=== PATIENT | female | born 1960 | race Caucasian/White ===

== ENCOUNTER 2020-01-07 17:58 | Emergency (ER) | payer OTHER ==
[2020-01-07 18:06] VITALS: BP 145/85; PULSE 78; RESP 18
--- NOTE | 2020-01-07 19:30 | CT ---
EXAMINATION TYPE: CT facial bones wo con DATE OF EXAM: 01/07/2020 COMPARISON: None HISTORY: Left eyelid lesion. Right ear pain. CT DLP: mGycm Automated exposure control for dose reduction was used. Images were obtained from the bottom of the mandible to the top of the frontal sinuses without contra st. There is old right temporal craniotomy defect. There is encephalomalacia right cerebral hemisphere. T he mandibular ring is intact. Temporal mandibular joints are intact. Zygomatic arches appear normal. The maxilla is intact. There is some mucosal thickening left maxillary sinus. There is no evidence of a blowout fracture. The orbital margins are intact. There is no retro-orbital mass. There is soft ti ssue swelling superior to the right orbit. Nasal bone appears intact. There is normal aeration of the temporal bones. The external auditory canals appear normal. There is normal aeration of the epitympanic recess bilaterally. There is no evidence of a soft tissue mass. IMPRESSION: Soft tissue deformity in the right supraorbital region. Previous surgery. Right hemisphere encephalomalacia. No abnormality seen of the temporal bones and ex ternal auditory canals.
--- NOTE | 2020-01-07 19:37 | CT ---
EXAMINATION TYPE: CT brain wo con DATE OF EXAM: 01/07/2020 COMPARISON: None HISTORY: Left eyelid lesion. Right ear pain. CT DLP: 1305.4 mGycm Automated exposure control for dose reduction was used. There is some cerebral cortical atrophy. There is hypodensity in the right temporal lobe in the luna and white matter consistent with old encephalomalacia. There is old right temporal craniotomy defect. There is no midline shift. There is no sign of intracranial hemorrhage. Skull base is intact. There is normal aeration of the mastoid sinuses. IMPRESSION: Old right temporal lobe encephalomalacia. No acute intracranial abnormality.
--- NOTE | 2020-01-07 19:56 | ED ---
General Adult HPI - General Chief complaint: Skin/Abscess/Foreign Body Stated complaint: eye problems Time Seen by Provider: 01/07/20 18:12 Source: patient, RN notes reviewed, old records reviewed Mode of arrival: ambulatory - History of Present Illness Initial comments: 59-year-old female patient presents to ED for evaluation of a lesion around right eye. Patient reports that has been there for about the last 7 weeks ever she feels as if it is getting bigger. States that her eyes have been tearing a little bit more recently but denies any vision changes denies any other acute complaints. Systemic: Pt denies fatigue, fever/chills, rash. Pt denies weakness, night sweats, weight loss. Neuro: Pt denies headache, visual disturbances, syncope or pre-syncope. HEENT: Pt denies ocular discharge or irritation, otalgia, rhinorrhea, pharyngitis or notable lymphadenopathy. Cardiopulmonary: Pt denies chest pain, SOB, heart palpitations, dyspnea on exertion. Abdominal/GI: Pt denies abdominal pain, n/v/d. : Pt denies dysuria, burning w/ urination, frequency/urgency. Denies new onset urinary or bowel incontinence. MSK: Pt denies myalgia, loss of strength or function in extremities. Neuro: Pt denies new onset weakness, paresthesias. - Related Data Allergies Allergy/AdvReac Type Severity Reaction Status Date / Time aspirin Allergy Unknown Verified 01/07/20 18:06 Review of Systems ROS Statement: Those systems with pertinent positive or pertinent negative responses have been documented in the HPI. ROS Other: All systems not noted in ROS Statement are negative. Past Medical History Past Medical History: Dementia, Myocardial Infarction ([place]) Additional Past Medical History / Comment(s): tumors in brain, History of Any Multi-Drug Resistant Organisms: None Reported Additional Past Surgical History / Comment(s): Brain sx Past Psychological History: No Psychological Hx Reported Smoking Status: Current every day smoker Past Alcohol Use History: None Reported Past Drug Use History: Marijuana General Exam - General Exam Comments Initial Comments: Constitutional: NAD, AOX3, Pt has pleasant affect. HEENT: NC/AT, trachea midline, neck supple, no lymphadenopathy. External ears appear normal, without discharge. Mucous membranes moist. Eyes PERRLA, EOM intact. Eye lesion to the right medial canthus. Small nodular growth above the right eyelid as well. No fluctuance or drainage. There is no scleral icterus. No pallor noted. Cardiopulmonary: RRR, no murmurs, rubs or gallops, no JVD noted. Lungs CTAB in anterior and posterior awan. No peripheral edema. Abdominal exam: Abdomen soft and non-distended. Neuro: CN II-XII grossly intact. No nuchal rigidity. No raccon eyes, no nance sign, no hemotympanum. No cervical spinal tenderness. MSK: Full active ROM in upper and lower extremities, 5/5 stregnth. Course Vital Signs 01/07/20 18:02 Temperature 98.1 F Pulse Rate 78 Respiratory 18 Rate Blood Pressure 145/85 O2 Sat by Pulse 98 Oximetry Medical Decision Making - Medical Decision Making 59-year-old female patient presents to ED for evaluation of a lesion around right eye. Patient reports that has been there for about the last 7 weeks ever she feels as if it is getting bigger. States that her eyes have been tearing a little bit more recently but denies any vision changes denies any other acute complaints. Pt VSS, afebrile. Physical exam displayed: I lesion near the right medial canthus with some nodular growth above the right eyelid. Patient did have prior brain tumor removed a number of years ago so there is some possible concern for that. CT facial bones and CT brain without contrast was performed. There is no contiguous growth. This is however concerning for skin cancer and discussed this with patient. She verbalizes understanding as well as her friend who is in room. Patient will be discharged with outpatient primary care dermatology and ophthalmology follow-up. We'll turn worsening symptoms. Case discussed and pt seen with with Dr. Vazquez. Disposition Clinical Impression: Skin lesion Disposition: HOME SELF-CARE Condition: Stable Instructions (If sedation given, give patient instructions): Skin Biopsy (DC) Additional Instructions: Follow up with primary care, dairy equipment repairer and power system dispatcher tomorrow. I do recommend that you have a skin biopsy performed as soon as possible. Return if any worsening symptoms. Is patient prescribed a controlled substance at d/c from ED?: No Referrals: None,Stated [Primary Care Provider] - 1-2 days Vandana Carpenter MD [REFERRING] - 1-2 days Nigel Layne MD [STAFF PHYSICIAN] - 1-2 days Nara Lynne MD [STAFF PHYSICIAN] - 1-2 days
[2020-01-07 20:18] VITALS: TEMP 97.5
== END 2020-01-07 20:18 | disposition home or self-care (01) ==
LOC: EC 17:58
DX: L98.9 Disorder of the skin and subcutaneous tissue, unspecified (principal); I25.2 Old myocardial infarction; F17.200 Nicotine dependence, unspecified, uncomplicated; Z88.6 Allergy status to analgesic agent
CPT/HCPCS: 70450; 70486; 99284

== ENCOUNTER 2020-01-12 20:13 | Emergency (ER) | payer OTHER ==
[2020-01-12] MEDS ORDERED: BACITRACIN OINT 1 EACH PACKET TOPICAL ONE (21:08)
--- NOTE | 2020-01-12 21:08 | ED ---
Skin/Abscess/FB HPI - General Chief complaint: Skin/Abscess/Foreign Body Stated complaint: Rt eye problem Time Seen by Provider: 01/12/20 20:18 Source: patient Mode of arrival: ambulatory Limitations: no limitations - History of Present Illness Initial comments: Patient is a 59-year-old female presenting to emergency Department via EMS with complaints of a lesion on her right eye. Patient states she thinks it's been there for about 2 months. Patient was seen in the ER 5 days ago for same complaint however patient states that she does not remember coming to the ER and does not remember what she was told regarding the lesion. She has not followed up with her doctors for this. Patient denies any fevers, chills, blurry vision. She states she does have some drainage from her right eye. Patient states she has a history of brain cancer and has memory issues, dementia. Patient also mentioned that she is homeless that started today. She denies any stress of breath, chest pain, abdominal pain, vomiting, diarrhea. She has no further complaints at this time. - Related Data Allergies Allergy/AdvReac Type Severity Reaction Status Date / Time aspirin Allergy Unknown Verified 01/07/20 18:06 Review of Systems ROS Statement: Those systems with pertinent positive or pertinent negative responses have been documented in the HPI. ROS Other: All systems not noted in ROS Statement are negative. Past Medical History Past Medical History: Dementia, Myocardial Infarction ([place]) Additional Past Medical History / Comment(s): tumors in brain, History of Any Multi-Drug Resistant Organisms: None Reported Additional Past Surgical History / Comment(s): Brain sx Past Psychological History: No Psychological Hx Reported Smoking Status: Current every day smoker Past Alcohol Use History: None Reported Past Drug Use History: Marijuana General Exam - General Exam Comments Initial Comments: GENERAL: Patient is well-developed and well-nourished. Patient is nontoxic and in no acute distress. HEAD: Atraumatic, normocephalic. EYES: Pupils equal round and reactive to light, extraocular movements intact, sclera anicteric, conjunctiva are normal. Eyelids were unremarkable on the left. There is a rather large lesion, about quarter size, to the right medial canthus that extends to the middle of the upper eye. Mild drainage from the right eye. ENT: TMs normal, nares patent, oropharynx clear without exudates. Moist mucous membranes. NECK: Normal range of motion, supple without lymphadenopathy or JVD. LUNGS: Unlabored respirations. Breath sounds clear to auscultation bilaterally and equal. No wheezes rales or rhonchi. HEART: Regular rate and rhythm without murmurs, rubs or gallops. ABDOMEN: Soft, nontender, normoactive bowel sounds. No guarding, no rebound. No masses appreciated. : Deferred MUSCULOSKELETAL: Normal extremities with adequate strength and normal range of motion, no pitting or edema. No clubbing or cyanosis. NEUROLOGICAL: Patient is alert and oriented x 3. Motor and sensory are also intact. Cranial nerves II through XII grossly intact. Symmetrical smile. Normal speech, normal gait. PSYCH: Normal mood, normal affect. SKIN: Warm, Dry, normal turgor, no rashes or lesions noted. Limitations: no limitations Course Vital Signs 01/12/20 20:20 Temperature 98.5 F Pulse Rate 89 Respiratory 20 Rate Blood Pressure 141/67 O2 Sat by Pulse 100 Oximetry Medical Decision Making - Medical Decision Making Patient is a 59-year-old female here for a lesion to her right eye. Patient was seen 5 days ago for same complaint, did have a CT and discussed with patient that there is concerns for this lesion being cancerous. She was given many referrals to plastic surgery as well as dermatology. Patient does have history of dementia and does not remember coming to the ER. I discussed these same things with the patient that her lesion appears cancerous. I will give her referrals again. She is also requesting snf information and tried to give her. Patient is stable for discharge. Return parameters were discussed with the patient she verbalized understanding. Case discussed with Dr. Lennon. Disposition Clinical Impression: Skin lesion Disposition: HOME SELF-CARE Condition: Stable Instructions (If sedation given, give patient instructions): Eye Pain (ED) Additional Instructions: Please return to the Emergency Department if symptoms worsen or any other concerns. The lesion on your eye has concerns for being cancerous. Please follow-up with PCP, dermatology and plastics surgery. Is patient prescribed a controlled substance at d/c from ED?: No Referrals: None,Stated [Primary Care Provider] - 1-2 days Vandana Carpenter MD [REFERRING] - 1-2 days Nigel Layne MD [STAFF PHYSICIAN] - 1-2 days Nara Lynne MD [STAFF PHYSICIAN] - 1-2 days
[2020-01-12 21:39] VITALS: BP 140/81; PULSE 84; RESP 16; TEMP 98.1
== END 2020-01-12 21:38 | disposition home or self-care (01) ==
LOC: EC 20:13
DX: L98.8 Other specified disorders of the skin and subcutaneous tissue (principal); I25.2 Old myocardial infarction; F17.200 Nicotine dependence, unspecified, uncomplicated; Z88.6 Allergy status to analgesic agent; Z59.0 Homelessness; Z85.841 Personal history of malignant neoplasm of brain
CPT/HCPCS: 99282

== ENCOUNTER 2020-01-12 23:27 | Inpatient (IN) | payer OTHER ==
[2020-01-13] MEDS ORDERED: SODIUM CHLORIDE 0.9% 1,000 ML IV STA (00:14)
[2020-01-13 00:30] LABS: Basophils # (A) 0.1 k/uL (0-0.2); Basophils % (A) 1 %; Eosinophils # (A) 0.1 k/uL (0-0.7); Eosinophils % (A) 1 %; HCT 45.1 % (34.0-46.0); HGB 14.6 gm/dL (11.4-16.0); Lymphocytes # (A) 1.9 k/uL (1.0-4.8); Lymphocytes % (A) 18 %; MCH 30.3 pg (25.0-35.0); MCHC 32.4 g/dL (31.0-37.0); MCV 93.7 fL (80.0-100.0); Mean Platelet Volume 8.7; Monocytes # (A) 0.7 k/uL (0-1.0); Monocytes % (A) 6 %; Neutrophils # (A) 7.6 k/uL (1.3-7.7); Neutrophils % (A) 72 %; Platelet Count 247 k/uL (150-450); RBC 4.81 m/uL (3.80-5.40); RDW 13.4 % (11.5-15.5); WBC 10.5 k/uL (3.8-10.6)
--- NOTE | 2020-01-13 00:34 | ED ---
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 Patient has a history of brain cancer with mass removal which she reports resulted in memory problems. Patient reports a history of NSTEMI in the past, treated in Ct. Patient was seen and evaluated earlier today for an eyelid lesion, is concern fo r a cancerous lesion, patient was referred dermis outpatient. Upon discharge home patient reports she began having stabbing substernal chest pain. She doesn't recall who she was with but states that they brought her back to the hospital for evaluation. Due to patient's cardiac history there is concerned she may be having a cardiac event. However no became into the hospital with her. Patient states that she moved to [place] from [place] with a female friend, she states that the friend is out of town for the weekend. Patient states she didn't know where she was processed air which she is doing so she was given a walk back to [place] where she is originally from. - Related Data Allergies Allergy/AdvReac Type Severity Reaction Status Date / Time aspirin Allergy Unknown Verified 01/12/20 23:46 Review of Systems ROS Statement: Those systems with pertinent positive or pertinent negative responses have been documented in the HPI. ROS Other: All systems not noted in ROS Statement are negative. EKG Findings - EKG Comments: EKG Findings:: EKG was obtained due to complaint of chest pain, EKG was obtained at 12:03 AM, rate is 84 rhythm is sinus, normal axis, normal intervals, WA 118, QRS 100, QTC 477 there are no acute ST elevations or depressions no evidence of ischemia or infarction or arrhythmia. Past Medical History Past Medical History: Dementia, Myocardial Infarction ([place]) Additional Past Medical History / Comment(s): tumors in brain, History of Any Multi-Drug Resistant Organisms: None Reported Additional Past Surgical History / Comment(s): Brain sx Past Psychological History: No Psychological Hx Reported Smoking Status: Current every day smoker Past Alcohol Use History: None Reported Past Drug Use History: Marijuana General Exam - General Exam Comments Initial Comments: Physical Exam GENERAL: Chronically ill appearing, underweight HENT: Surgical changes on right side temporal skull EYES: PERRL, EOMI Right eyelid with chronic wound, concerning for cancerous lesion PULMONARY: mild expiratory wheezing CARDIOVASCULAR: There is a regular rate and rhythm without any murmurs gallops or rubs. ABDOMEN: Soft and nontender with normal bowel sounds. SKIN: Skin is clear with no lesions or rashes and otherwise unremarkable. : Deferred NEUROLOGIC: Patient is alert and oriented to person, place, date and president however poor medical artist, limited recall of earlier visit Moving all extremities spontaneously MUSCULOSKELETAL: Normal extremities with adequate strength and full range of motion. No lower extremity swelling or edema. No calf tenderness. PSYCHIATRIC: Normal psychiatric evaluation. Limitations: no limitations Course Vital Signs 01/12/20 01/13/20 23:41 02:19 Temperature 98 F Pulse Rate 81 73 Respiratory 16 18 Rate Blood Pressure 144/79 143/93 O2 Sat by Pulse 100 98 Oximetry Chest Pain MDM - MDM The patient was seen and evaluated, history is obtained from patient This is a very sweet 59-year-old female who appears chronically ill Patient is brought to the ER after complaining of retrosternal chest pain, on arrival she is pain-free however given her significant cardiac history of for workup will be obtained Upon further discussion with the patient I do not feel she safe for discharge home, she has no established medical care, no establish social connections here in town, not certain where she supposed to be staying she's very poor historian she does seem somewhat confused. Despite the negative cardiac workup. Do feel she warrants further observation by medical insurance claims specialist and evaluation by social work. This plan was discussed with Dr. Rodriguez who agrees. Disposition Clinical Impression: Chest pain, Memory impairment, Skin lesion Disposition: ADMITTED IP TO THIS HOSP Condition: Stable Is patient prescribed a controlled substance at d/c from ED?: No
[2020-01-13 00:39] LABS: INR 1.2 (<1.2); Partial Thromboplastin Time 26.1 sec (22.0-30.0); Prothrombin Time 12.1 sec (9.0-12.0)
--- NOTE | 2020-01-13 00:39 | XR ---
EXAMINATION TYPE: XR chest 2V DATE OF EXAM: 01/13/2020 COMPARISON: NONE HISTORY: Chest pain TECHNIQUE: 2 views FINDINGS: Heart is normal. Lungs are clear of consolidation. There is pulmonary hyperinflation and fl attening of the diaphragm there are no hilar masses. There are chest leads. IMPRESSION: COPD. No acute lung disease. Normal heart.
[2020-01-13 00:41] LABS: ALT 12 U/L (4-34); AST 21 U/L (14-36); African American GFR (CKD) >90 (>60 ml/min/1.73 sqM); Albumin 4.6 g/dL (3.5-5.0); Alkaline Phosphatase 93 U/L (38-126); Anion Gap 6 mmol/L; Blood Urea Nitrogen 10 mg/dL (7-17); Calcium 9.6 mg/dL (8.4-10.2); Carbon Dioxide 32 mmol/L (22-30); Chloride 95 mmol/L (98-107); Glucose 100 mg/dL (74-99); Magnesium 2.2 mg/dL (1.6-2.3); Non-African American GFR(CKD) >90 (>60 ml/min/1.73 sqM); Potassium 3.2 mmol/L (3.5-5.1); Sodium 133 mmol/L (137-145); Total Bilirubin 0.4 mg/dL (0.2-1.3); Total Protein 7.3 g/dL (6.3-8.2)
[2020-01-13] MEDS ORDERED: Potassium Replacement Protocol 1 EACH MISC MISCELLANE PRN (01:27)
[2020-01-13] MEDS ORDERED: POTASSIUM CHLORIDE ER 20 MEQ TAB.ER PO STA (01:27)
[2020-01-13] MEDS ORDERED: NITROGLYCERIN SL TABS 0.4 MG TAB SUBLINGUAL PRN (01:53)
--- NOTE | 2020-01-13 04:02 | P.HPIM ---
History of Present Illness H&P Date: 01/13/20 Patient was seen and evaluated in the emergency room at 3 AM on 01/12 Patient is a 59-year-old female with a PMH of mild cognitive impairment, coronary artery disease with multiple MIs, and a reported history of brain cancer with mass removal with resulting memory impairment as per the patient who presented to the ED with complaints of chest pain. The patient presented to the hospital earlier today with complaints of a bleeding right-sided eyelid lesion. She was discharged home and subsequently came back because she developed substernal sharp chest pain. At time of interview, patient reported that her pain had resolved entirely and she was unable to recall the exact details surrounding her pain. The patient notes over that she had recently moved to [place] from [place] to stay with a friend. She appeared to be confused during the interview and noted that she was planning on going back to see her family and had packed a bag of her clothes with a plan to walk from [facility]. She acknowledges that she didn't think the plan through and she is not sure how she would've reached [place] on foot. She reports that the chest pain had only lasted a few minutes, with no associated symptoms and had resolved spontaneously. She denied any additional complaints at the current time. She denied shortness of breath, nausea, vomiting, palpitations, dizziness, headache, visual disturbances, abdominal pain, or diarrhea. In the emergency room an EKG showed a normal sinus rhythm at [address]/T-wave changes noted as reviewed by me. Chest x-ray was consistent with COPD. Laboratory evaluation was reviewed and was remarkable for a sodium of 133, potassium 3.2, chloride 95, CO2 32, glucose 100, and a troponin less than 0.012. Review of Systems Pertinent positives and negatives as discussed in HPI, a complete review of systems was performed and all other systems are negative. Past Medical History Past Medical History: Dementia, Myocardial Infarction ([place]) Additional Past Medical History / Comment(s): tumors in brain, Last Myocardial Infarction Date:: unknown History of Any Multi-Drug Resistant Organisms: None Reported Additional Past Surgical History / Comment(s): Brain sx Past Psychological History: No Psychological Hx Reported Smoking Status: Current every day smoker Past Alcohol Use History: None Reported Past Drug Use History: Marijuana Medications and Allergies Allergies Allergy/AdvReac Type Severity Reaction Status Date / Time aspirin Allergy Unknown Verified 01/12/20 23:46 Physical Exam Vitals: Vital Signs Temp Pulse Pulse Resp BP BP Pulse Ox 01/13/20 02:50 97.9 F 65 18 146/73 100 01/13/20 02:19 73 18 143/93 98 01/12/20 23:41 98 F 81 16 144/79 100 Intake and Output 01/12/20 01/12/20 01/13/20 14:59 22:59 06:59 Other: Weight 40.823 kg General: Frail female, non toxic, no distress, appears older than stated age Derm: Right eyelid irregular lesion, no unusual ecchymoses, warm, dry Head: atraumatic, normocephalic, symmetric Eyes: EOMI, no lid lag, anicteric sclera, pupils equal round reactive to light ENT: Nose and ears atraumatic, no thrush, no pharyngeal erythema Neck: No thyromegaly, no cervical lymphadenopathy, trachea midline, supple Mouth: no lip lesion, mucus membranes moist Cardiovascular: S1S2 reg, no murmur, positive posterior tibial pulse bilateral, no edema, capillary refill less than 2 seconds Lungs: CTA bilateral, no rhonchi, no rales , no accessory muscle use Abdominal: soft, nontender to palpation, no guarding, no appreciable organomegaly, normal bowel sounds Ext: no gross muscle atrophy, muscle strength 5 out of 5 in all 4 extremities grossly, no contractures, Neuro: CN II-XI grossly intact, light touch intact all 4 extremities, finger to nose within normal limits, Psych: Oriented to person, place, and time Results CBC & Chem 7: 01/13/20 00:18 01/13/20 00:18 Labs: Abnormal Lab Results - Last 24 Hours (Table) 01/13/20 01/13/20 Range/Units 00:18 00:18 PT 12.1 H (9.0-12.0) sec INR 1.2 H (<1.2) Sodium 133 L (137-145) mmol/L Potassium 3.2 L (3.5-5.1) mmol/L Chloride 95 L (98-107) mmol/L Carbon Dioxide 32 H (22-30) mmol/L Glucose 100 H (74-99) mg/dL Assessment and Plan Plan: Chest pain, rule out ACS -Cardiology consult -Cardiac monitoring -Trend troponin Right eyelid lesion, appears chronic in nature -Patient is unable to state how long she has had this -Advised the patient on the importance of outpatient follow-up dermatology Questionable living situation -Patient notes that she is living with her friend and her boyfriend though wishes to go to [place] -Obtain social work consult Hypokalemia -Replace and monitor Hypochloremic hyponatremia -Likely due to poor oral intake and malnutrition -Continue with IV fluids DVT prophylaxis -Heparin subq The patient is admitted with an anticipated less than than 2 midnight stay for evaluation of chest pain. CODE STATUS: Full code Discussed with: Patient Anticipated discharge date: In a.m. Anticipated discharge place: Home A total of 35 minutes was spent on the care of this complex patient more than 50% of the time was spent in counseling and care coordination.
[2020-01-13 09:00] LABS: HCT 41.6 % (34.0-46.0); HGB 12.9 gm/dL (11.4-16.0); MCH 28.7 pg (25.0-35.0); MCHC 30.9 g/dL (31.0-37.0); MCV 92.8 fL (80.0-100.0); Mean Platelet Volume 9.8; Platelet Count 224 k/uL (150-450); RBC 4.48 m/uL (3.80-5.40); RDW 13.7 % (11.5-15.5); WBC 8.3 k/uL (3.8-10.6)
[2020-01-13 09:10] LABS: African American GFR (CKD) >90 (>60 ml/min/1.73 sqM); Anion Gap 3 mmol/L; Blood Urea Nitrogen 9 mg/dL (7-17); Calcium 8.9 mg/dL (8.4-10.2); Carbon Dioxide 30 mmol/L (22-30); Chloride 103 mmol/L (98-107); Glucose 75 mg/dL (74-99); Non-African American GFR(CKD) >90 (>60 ml/min/1.73 sqM); Potassium 4.1 mmol/L (3.5-5.1); Sodium 136 mmol/L (137-145)
--- NOTE | 2020-01-13 11:53 | P.PN ---
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 Arrival to the ER she underwent an extensive evaluation. Her initial vital signs were within normal limits. Laboratory analysis showed sodium 133, potassium 3.2, carbon dioxide 32 and initial troponin was negative. EKG demonstrated normal sinus rhythm at a rate of [address]-T wave changes. She was admitted for chest pain observation. She has not started on aspirin secondary to history of an ALLERGY. The remainder of her troponins were negative. Patient also showed significant memory impairment during her hospital stay. Over record review it appears that she came in on 01/06 secondary to a right eye lesion at that point in time she was recommended outpatient follow-up with primary care, dermatology, and ophthalmology. On 01/11 she again presented to the ER with complaints of the right eye lesion and per ER records did not remember coming to the ER on 01/06 for the same problem. She then came back to the ER several hours later with complaints of chest pain. Patient seen and examined at bedside. She states she is having chest pain retrosternal without radiation lasting for 5 minutes the been occurring intermittently. She states she is unsure if it was associated with shortness of breath. She is unsure what started. She is unsure when her eye lesion started, she states she has a history of a br ain tumor which was treated and she now has memory problems. She is unable to remember how she arrived at the emergency department and states I think that the ambulance brought me. She is unable to tell me the address of where she is living at. Apparently her friend Marshall is helping take care of her or living in an RV on someone else's property. She does not know Marshall's phone number. She states they were living in [place] and then came to [place]. She is unsure how long they've been in [place]. She does know that it is 2019 and January. She is unsure of the city. She is able to recall that her ex-'s name is Kavin and do-qangml-ww-law Marilou and there phone numbers. She states she does not take any medication but thinks she should be on something for her prior heart attacks. She is unable to tell me how she obtains money. She states that her original plan was to walk to [place] but she now realizes that that is not a good plan. I told her that she is not safe to leave the hospital without us knowing that there is someone to take care of her she clearly is having memory problems. She is not seem to grasp the concept of why he cannot allow her to leave the [facility] at this time. Social work has been contacted. General: non toxic, no distress, appears at stated age, discheveled and malodorous Derm: warm, dry Head: atraumatic, normocephalic, symmetric Eyes: EOMI, no lid lag, anicteric sclera, right supraorbital nodular growth without drainage Mouth: no lip lesion, mucus membranes moist Cardiovascular: S1S2 reg, no murmur, positive posterior tibial pulse bilateral, Lungs: CTA bilateral, no rhonchi, no rales , no accessory muscle use Abdominal: soft, nontender to palpation, no guarding, no appreciable organomegaly Ext: no gross muscle atrophy, no edema, no contractures Neuro: CN II-XI grossly intact, no focal neuro deficits Psych: Alert, oriented, appropriate affect Chest pain - ACS ruled out - allergic to Aspirin - Await cardio recs - await lipid profile Memory impairment -Patient is currently not competent to make her own decisions. She has demonstrated lack of insight and she felt she could walk from [place] from [place], she is unable to recall where she is living or provide any information, and she cannot remember how she got to the hospital. At this point in time she is not safe for discharge. - CT head from 01/06 demonstrated old rihgt temporal encephalomalacia - Social work consulted, no safe discharge at this time. Right supreorbital lesion - CT face done 01/06 demonstarted soft tissue density of right supraorbital lesion. - outpatient optho/derm follow-up DVT prophylaxis: SCDs Discussed with: Patient, nursing (will enourage patient to call her ex and see if they have information about Marshall) Anticipated discharge: no safe discharge available at this time Anticipated discharge place: unknown A total of 45minutes was spent on the care of this complex patient more than 50% of the time was spent in counseling and care coordination. Objective - Vital Signs Vital signs: Vital Signs Temp 97.6 F 01/13/20 07:55 Pulse 66 01/13/20 08:45 Resp 14 01/13/20 08:45 BP 120/53 01/13/20 07:55 Pulse Ox 99 01/13/20 07:55 Intake & Output 01/12/20 01/13/20 01/13/20 18:59 06:59 18:59 Intake Total 0 Balance 0 Weight 40.823 kg Intake: Oral 0 Other: Voiding Method Toilet - Labs CBC & Chem 7: 01/13/20 06:48 01/13/20 06:48 Labs: Abnormal Lab Results - Last 24 Hours (Table) 01/13/20 01/13/20 01/13/20 Range/Units 00:18 00:18 06:48 MCHC 30.9 L (31.0-37.0) g/dL PT 12.1 H (9.0-12.0) sec INR 1.2 H (<1.2) Sodium 133 L (137-145) mmol/L Potassium 3.2 L (3.5-5.1) mmol/L Chloride 95 L (98-107) mmol/L Carbon Dioxide 32 H (22-30) mmol/L Glucose 100 H (74-99) mg/dL 01/13/20 Range/Units 06:48 MCHC (31.0-37.0) g/dL PT (9.0-12.0) sec INR (<1.2) Sodium 136 L (137-145) mmol/L Potassium (3.5-5.1) mmol/L Chloride (98-107) mmol/L Carbon Dioxide (22-30) mmol/L Glucose (74-99) mg/dL
--- NOTE | 2020-01-13 14:26 | P.CRDCN ---
<Laura Lanier A - Last Filed: 01/13/20 14:10> History of Present Illness Consult date: 01/13/20 Consult reason: chest pain History of present illness: History of present illness: This is a 59-year-old female patient with past medical history of brain cancer with mass remote resulting in memory impairment, mild cognitive impairment. Patient states a friend told her that she has had 3 heart attacks while she was in [place] but she is unable to recall this due to her memory loss. She is not currently taking any medications and does not see a ham doctor. She does not recall if she's ever had a stress test or heart catheterization. Patient recently moved from [place] to [place]. Patient has been homeless and living in a friend's RV. She is trying to get back to [place] and is waiting for her social security check, she does not have transportation. Social work to develop discharge planning. Patient was seen in the emergency center for eyelid laceration and was prepared for discharge but developed a midsternal sharp chest pain. She denied having any nausea or vomiting. She felt a little short of breath. No radiation of the pain no diaphoresis. CBC was unremarkable. INR 1.2. Sodium 133, potassium 3.2, chloride 95, CO2 32. BUN of 10 and creatinine 0.59. Blood sugar 100. Liver function tests are normal. Troponins are negative on 3 draws. Repeat potassium is 4.1. EKG was a sinus rhythm with no acute ST changes. Chest x-ray reveals COPD. No acute lung disease. Normal heart. Patient denies any chest pain at the time of evaluation. Patient is a smoker one pack per days and she was 12 years of age. She does smoke marijuana occasionally. No alcohol abuse. Mother had history of angina. Review Of Systems: Constitutional: No fever, no chills. No weakness, fatigue or lethargy. EENT: No headache. No dizziness. Lesion to the right eyelid Lungs: No shortness of breath, cough, no sputum production. No wheezing. Cardiovascular: No chest pain, no lower extremity edema. No palpitations. No paroxysmal nocturnal dyspnea. No orthopnea. No lightheadedness or dizziness. No syncopal episodes. Abdominal: No abdominal pain. No nausea, vomiting. No diarrhea. No constipation. No bloody or tarry stools. Musculoskeletal: No myalgias. No muscle weakness, no gait dysfunction, no frequent falls. No back pain. No neck pain. Integumentary: No wounds, no lesions. No rash or pruritus. No unusual bruising. Neurologic: No aphasia. No facial droop. No change in mentation. No head injury. No headache. Psychiatric: No depression. Reports anxiety. Endocrine: No abnormal blood sugars. Physical examination: Gen: This is a very cachectic-appearing disheveled 59-year-old female. Patient is ambulating in her room and appears to be in no acute distress. VS: Afebrile, heart rate 66, blood pressure 120/53, pulse ox 99% on room air. HEENT: Head is atraumatic, normocephalic. Pupils equal, round. Sclerae is anicteric. NECK: Supple. No JVD. No lymphadenopathy. No thyromegaly. LUNGS: Clear to auscultation. No wheezes or rhonchi. No intercostal retractions. HEART: Regular rate and rhythm. No murmur. ABDOMEN: Soft. Bowel sounds are present. No masses. No tenderness. EXTREMITIES: No pedal edema. No calf tenderness. Dorsalis pedis +2 bilaterally. NEUROLOGICAL: Patient is awake, alert and oriented to person place and time. Cranial nerves 2 through 12 are grossly intact. Assessment: Chest pain, acute coronary syndrome ruled out Hypokalemia status post replacement Homeless Plan: No need for further cardiac workup We will sign off and follow up on an as-needed basis. Thank you kindly for this consultation. Nurse practitioner note has been reviewed, I agree with documented findings and plan of care. Patient was seen and examined. Past Medical History Past Medical History: Dementia, Myocardial Infarction (MA) Additional Past Medical History / Comment(s): tumors in brain, Last Myocardial Infarction Date:: unknown History of Any Multi-Drug Resistant Organisms: None Reported Additional Past Surgical History / Comment(s): Brain sx Past Psychological History: No Psychological Hx Reported Smoking Status: Current every day smoker Past Alcohol Use History: None Reported Past Drug Use History: Marijuana Medications and Allergies Home Medications Medication Instructions Recorded Confirmed Type diphenhydrAMINE [Benadryl] 25 mg PO HS PRN 01/13/20 01/13/20 History Allergies Allergy/AdvReac Type Severity Reaction Status Date / Time aspirin Allergy Unknown Verified 01/13/20 10:27 Physical Exam Vitals: Vital Signs Temp Pulse Pulse Resp BP BP Pulse Ox 01/13/20 08:45 66 14 01/13/20 07:55 97.6 F 66 14 120/53 99 01/13/20 02:50 97.9 F 65 18 146/73 100 01/13/20 02:19 73 18 143/93 98 01/12/20 23:41 98 F 81 16 144/79 100 Intake and Output 01/12/20 01/13/20 01/13/20 22:59 06:59 14:59 Intake Total 0 200 Balance 0 200 Intake: Oral 0 200 Other: Voiding Method Toilet # Voids 2 Weight 40.823 kg Results 01/13/20 06:48 01/13/20 06:48 Cardiac Enzymes 01/13/20 01/13/20 01/13/20 Range/Units 00:18 00:18 04:18 AST 21 (14-36) U/L Troponin I <0.012 <0.012 (0.000-0.034) ng/mL 01/13/20 Range/Units 06:48 AST (14-36) U/L Troponin I <0.012 (0.000-0.034) ng/mL Coagulation 01/13/20 Range/Units 00:18 PT 12.1 H (9.0-12.0) sec APTT 26.1 (22.0-30.0) sec CBC 01/13/20 01/13/20 Range/Units 00:18 06:48 WBC 10.5 8.3 (3.8-10.6) k/uL RBC 4.81 4.48 (3.80-5.40) m/uL Hgb 14.6 12.9 (11.4-16.0) gm/dL Hct 45.1 41.6 (34.0-46.0) % Plt Count 247 224 (150-450) k/uL Comprehensive Metabolic Panel 01/13/20 01/13/20 Range/Units 00:18 06:48 Sodium 133 L 136 L (137-145) mmol/L Potassium 3.2 L 4.1 (3.5-5.1) mmol/L Chloride 95 L 103 (98-107) mmol/L Carbon Dioxide 32 H 30 (22-30) mmol/L BUN 10 9 (7-17) mg/dL Creatinine 0.59 0.56 (0.52-1.04) mg/dL Glucose 100 H 75 (74-99) mg/dL Calcium 9.6 8.9 (8.4-10.2) mg/dL AST 21 (14-36) U/L ALT 12 (4-34) U/L Alkaline Phosphatase 93 (38-126) U/L Total Protein 7.3 (6.3-8.2) g/dL Albumin 4.6 (3.5-5.0) g/dL Current Medications Generic Name Dose Route Start Last Admin Trade Name Freq PRN Reason Stop Dose Admin Miscellaneous Information 1 each 01/13/20 01:27 Potassium Replacement Protocol 1 Each Misc MISCELLANE DAILY PRN Per Protocol Protocol Nitroglycerin 0.4 mg 01/13/20 01:53 Nitroglycerin Sl Tabs 0.4 Mg Tab SUBLINGUAL Q5M PRN Chest Pain Intake and Output 01/12/20 01/13/20 01/13/20 22:59 06:59 14:59 Intake Total 0 200 Balance 0 200 Intake: Oral 0 200 Other: Voiding Method Toilet # Voids 2 Weight 40.823 kg 01/13/20 06:48 01/13/20 06:48 <Robert Sepulveda - Last Filed: 01/13/20 17:46> Physical Exam Vitals: Vital Signs Temp Pulse Pulse Resp BP BP Pulse Ox 01/13/20 15:00 98.0 F 59 L 16 118/70 99 01/13/20 08:45 66 14 01/13/20 07:55 97.6 F 66 14 120/53 99 01/13/20 02:50 97.9 F 65 18 146/73 100 01/13/20 02:19 73 18 143/93 98 01/12/20 23:41 98 F 81 16 144/79 100 Intake and Output 01/13/20 01/13/20 01/13/20 06:59 14:59 22:59 Intake Total 0 200 Balance 0 200 Intake: Oral 0 200 Other: Voiding Method Toilet Toilet # Voids 2 Weight 40.823 kg Results 01/13/20 06:48 01/13/20 06:48 Cardiac Enzymes 01/13/20 01/13/20 01/13/20 Range/Units 00:18 00:18 04:18 AST 21 (14-36) U/L Troponin I <0.012 <0.012 (0.000-0.034) ng/mL 01/13/20 Range/Units 06:48 AST (14-36) U/L Troponin I <0.012 (0.000-0.034) ng/mL Coagulation 01/13/20 Range/Units 00:18 PT 12.1 H (9.0-12.0) sec APTT 26.1 (22.0-30.0) sec CBC 01/13/20 01/13/20 Range/Units 00:18 06:48 WBC 10.5 8.3 (3.8-10.6) k/uL RBC 4.81 4.48 (3.80-5.40) m/uL Hgb 14.6 12.9 (11.4-16.0) gm/dL Hct 45.1 41.6 (34.0-46.0) % Plt Count 247 224 (150-450) k/uL Comprehensive Metabolic Panel 01/13/20 01/13/20 Range/Units 00:18 06:48 Sodium 133 L 136 L (137-145) mmol/L Potassium 3.2 L 4.1 (3.5-5.1) mmol/L Chloride 95 L 103 (98-107) mmol/L Carbon Dioxide 32 H 30 (22-30) mmol/L BUN 10 9 (7-17) mg/dL Creatinine 0.59 0.56 (0.52-1.04) mg/dL Glucose 100 H 75 (74-99) mg/dL Calcium 9.6 8.9 (8.4-10.2) mg/dL AST 21 (14-36) U/L ALT 12 (4-34) U/L Alkaline Phosphatase 93 (38-126) U/L Total Protein 7.3 (6.3-8.2) g/dL Albumin 4.6 (3.5-5.0) g/dL Current Medications Generic Name Dose Route Start Last Admin Trade Name Freq PRN Reason Stop Dose Admin Miscellaneous Information 1 each 01/13/20 01:27 Potassium Replacement Protocol 1 Each Misc MISCELLANE DAILY PRN Per Protocol Protocol Nitroglycerin 0.4 mg 01/13/20 01:53 Nitroglycerin Sl Tabs 0.4 Mg Tab SUBLINGUAL Q5M PRN Chest Pain Intake and Output 01/13/20 01/13/20 01/13/20 06:59 14:59 22:59 Intake Total 0 200 Balance 0 200 Intake: Oral 0 200 Other: Voiding Method Toilet Toilet # Voids 2 Weight 40.823 kg 01/13/20 06:48 01/13/20 06:48
[2020-01-13 20:44] LABS: Urine Alcohol Negative (Negative); Urine Barbiturate Negative (Negative); Urine Cocaine Negative (Negative); Urine Methadone Negative (Negative); Urine Opiates Negative (Negative); Urine Phencyclidine Negative (Negative)
[2020-01-14 03:06] LABS: Cholesterol 116 mg/dL (<200); HDL Cholesterol 53 mg/dL (40-60); LDL Cholesterol,Calculated 49 mg/dL (0-99); Triglycerides 71 mg/dL (<150)
[2020-01-14] MEDS: NICOTINE 21MG/24HR PATCH TRANSDERM SCH (11:10)
--- NOTE | 2020-01-14 11:19 | P.PN ---
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 Arrival to the ER she underwent an extensive evaluation. Her initial vital signs were within normal limits. Laboratory analysis showed sodium 133, potassium 3.2, carbon dioxide 32 and initial troponin was negative. EKG demonstrated normal sinus rhythm at a rate of [address]-T wave changes. She was admitted for chest pain observation. She has not started on aspirin secondary to history of an ALLERGY. The remainder of her troponins were negative. Acute coronary syndrome was ruled out. She was cleared by cardiology for disharge. Patient also showed significant memory impairment during her hospital stay. Over record review it appears that she came in on 01/06 secondary to a right eye lesion at that point in time she was recommended outpatient follow-up with primary care, dermatology, and ophthalmology. On 01/11 she again presented to the ER with complaints of the right eye lesion and per ER records did not remember coming to the ER on 01/06 for the same problem. She then came back to the ER several hours later with complaints of chest pain. Patient seen and examined at bedside. She denies any recurrent chest pain, no nausea no shortness of breath. Feeling anxious about being discharged. She is not focused on a talisha coming to pick her up. She states that she has been speaking with her daughter and ultimately wants to go back to [place] to live with her daughter. She also is again asking about her eye lesion and I reminded her that she needs to see a consumer services consultant and have the area biopsied. She was caught smoking in the bathroom. General: non toxic, no distress, appears at stated age, smells of smoke Derm: warm, dry Head: atraumatic, normocephalic, symmetric Eyes: EOMI, no lid lag, anicteric sclera, right supraorbital nodular growth without drainage Mouth: no lip lesion, mucus membranes moist Cardiovascular: S1S2 reg, no murmur, positive posterior tibial pulse bilateral, Lungs: Decreased bs bilateral, no rhonchi, no rales , no accessory muscle use Neuro: CN II-XI grossly intact, no focal neuro deficits Psych: Alert, anxious, did not remember discussing eye lesion yesterday. Chest pain - ACS ruled out - allergic to Aspirin - cardio recs appreciated. - Lipid profile normal Memory impairment -Patient is currently not competent to make her own decisions. She has demonstrated lack of insight and she felt she could walk from [place] from [place], she is unable to recall where she is living or provide a phone number for her emergency care tech Marshall, and she cannot remember how she got to the hospital. At this point in time she is not safe for discharge. 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 - APS notified and unable to get ahold of GABY Olivares. Right supreorbital lesion - CT face done 01/06 demonstrated soft tissue density of right supraorbital lesion. No extension - outpatient optho/derm follow-up DVT prophylaxis: SCDs Discussed with: Patient, nursing Anticipated discharge: no safe discharge available at this time Anticipated discharge place: unknown A total of 20 minutes was spent on the care of this complex patient more than 50% of the time was spent in counseling and care coordination. Objective - Vital Signs Vital signs: Vital Signs Temp 97.9 F 01/14/20 08:57 Pulse 69 01/14/20 08:57 Resp 16 01/14/20 09:00 BP 125/61 01/14/20 08:57 Pulse Ox 99 01/14/20 08:57 Intake & Output 01/13/20 01/14/20 01/14/20 18:59 06:59 18:59 Intake Total 200 100 Balance 200 100 Intake: Oral 200 100 Other: Voiding Method Toilet Toilet Toilet # Voids 2 2 - Labs CBC & Chem 7: 01/13/20 06:48 01/13/20 06:48 Labs: Abnormal Lab Results - Last 24 Hours (Table) 01/13/20 Range/Units 11:59 U Cannabinoids Screen Positive H (Negative) ng/mL
[2020-01-14] MEDS: ALPRAZolam 0.5 MG TAB PO PRN (12:12)
[2020-01-14] MEDS: BACITRACIN ZINC 500 UNIT/GM OINT 28.4 GM TUBE TOPICAL PRN (12:26)
--- NOTE | 2020-01-14 13:43 | P.CN ---
Psychiatric Consult - . Consult date: 01/14/20 Consult:: IDENTIFYING DATA: This patient is a 59-year-old female with significant history of brain tumor, status post treatment, prior myocardial infarctions, and difficult memory presented to the emergency room with complaints of chest pain. HISTORY OF PRESENT ILLNESS: The patient presented to the hospital 01/13/2020. Patient has been noted to be significantly confused and has been a poor historian. Psychiatry has been consulted due to the patient expressing that she would "step out in front of a train to end it all." In regards to depression, patient reports no significant symptoms of depression. She is denying any suicidal or homicidal ideation, intention,'s and/or plan. She states that she was "talking smack." She expresses that she just really wanted to go outside to smoke a cigarette. She vehemently denies any suicidal ideation or intention. She states that she would live for her children and that her Protestant juanis is very strong. She is not endorsing any significant history of mental illnesses aside from feeling depressed after her father years ago. She is not endorsing any auditory or visual hallucinations. She is not reporting any significant paranoia or delusions. Of concern, she has been unable to identify any safety discharge plan or contact info for where she would be going after discharge. She reports that she has recently moved to [place] over the last 5 months. She states that she moved with her friend "Marshall Ramos" into a trailer on another friend's property. Patients admits to using tobacco. She reports 1 pack per day use. She is not endorsing any alcohol use. She reports occasional marijuana use. She reports a 1 time use of cocaine when it was laced marijuana. PAST PSYCHIATRIC HISTORY: Patient has a a history of depression. She is unable to recall any psychotropic medication should be on the past. She denies any previous psychiatric consultations. Patient denies any psychiatric outpatient follow-up. Patient denies any history of suicide attempts in the past. PAST MEDICAL HISTORY: Dementia, myocardial infarction, brain tumors. ALLERGIES: as per EMR. CHEMICAL DEPENDENCY HISTORY: as per HPI. FAMILY PSYCHIATRIC/SUBSTANCE USE HISTORY: Denies SOCIAL HISTORY: Patient was born [place], [place]. She reports moving to multiple places throughout the that she was a child. She reports that she has been 3 times . She states she has 2 children. She reports her daughter is living in [place] but is unable to verbalize where or how to contact her. She states that she has no idea where her son is living. MENTAL STATUS EXAM: General Appearance: Patient appears to be stated age is alert, pleasant, and cooperative. Patient appears to have fair hygiene and grooming wearing hospital gown with fair eye contact. Patient has noticeable right supraorbital modular gross without drainage. Behavior: Patient is calmly standing by the bed without any agitated behavior. Speech: Patient's speech is fluent and nonpressured. Patient speaks with a southern accent. Mood/Affect: Patient reports their mood is "depressed", affect is congruent Suicidality/Homicidality: Patient denies having any suicidal or homicidal ideation intent or plan. Perceptions: Patient denies any visual hallucinations and denies any auditory hallucinations Though content/process: There is no evidence of any delusional thought content and thought process is linear and goal-directed. Memory and concentration: She is alert and oriented to person and place but not to time or situation. grossly intact for the purposes of this session. Can spell "WORLD" backwards Judgment and insight: poor IMPRESSIONS: Memory impairment History of major depressive disorder PLAN: -At this time patient DOES NOT meet criteria for inpatient psychiatric ad mission. -Delirium precautions recommended with patient including - avoiding use of narcotics and HEM MARKER sedatives, limit anticholinergic medications when possible, frequent re-orientation, minimize use of restraints, open window shades during the day and close them at night -Would recommend the following medication changes/additions: We will not start any medications at this time. -Cancel 1:1. Patient does not require suicide precautions. -Psychiatry will sign off at this point, please contact with any questions. 01/14/20 13:31
[2020-01-15] MEDS ORDERED: NICOTINE POLACRILEX 2 MG GUM BUCCAL PRN (11:00)
--- NOTE | 2020-01-15 11:06 | P.PN ---
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 Arrival to the ER she underwent an extensive evaluation. Her initial vital signs were within normal limits. Laboratory analysis showed sodium 133, potassium 3.2, carbon dioxide 32 and initial troponin was negative. EKG demonstrated normal sinus rhythm at a rate of [address]-T wave changes. She was admitted for chest pain observation. She has not started on aspirin secondary to history of an ALLERGY. The remainder of her troponins were negative. Acute coronary syndrome was ruled out. She was cleared by cardiology for discharge. Patient also showed significant memory impairment during her hospital stay. Over record review it appears that she came in on 01/06 secondary to a right eye lesion at that point in time she was recommended outpatient follow-up with primary care, dermatology, and ophthalmology. On 01/11 she again presented to the ER with complaints of the right eye lesion and per ER records did not remember coming to the ER on 01/06 for the same problem. She then came back to the ER several hours later with complaints of chest pain. Patient seen and examined at bedside. She cannot remember how she got here, or what she is here for. States that she was anxious after she had an unsettling dr driver this morning. No chest pain, shortness of breath, or nausea. I again reiterated that she will be here until we have a safe place for her to go when she leaves. General: non toxic, no distress, appears at stated age Derm: warm, dry Head: atraumatic, normocephalic, symmetric Eyes: EOMI, no lid lag, anicteric sclera, right supraorbital nodular growth without drainage Mouth: no lip lesion, mucus membranes moist Cardiovascular: S1S2 reg, no murmur, positive posterior tibial pulse bilateral, Lungs: Decreased bs bilateral, no rhonchi, no rales , no accessory muscle use Neuro: CN II-XI grossly intact, no focal neuro deficits Psych: Alert, awake, appropriate affect. Chest pain - ACS ruled out - allergic to Aspirin - cardio recs appreciated. - Lipid profile normal Memory impairment, not competent to make decision for herself. -Patient is currently not competent to make her own decisions. She has demonstrated lack of insight and she felt she could walk from [place] from [place], she is unable to recall where she is living or provide a phone number for her child care specialist Marshall, and she cannot remember how she got to the hospital. At this point in time she is not safe for discharge until family or guardian contacted. 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 - APS notified and unable to get ahold of GABY Olivares, working with daughter. Right supreorbital lesion - CT face done 01/06 demonstrated soft tissue density of right supraorbital lesion. No extension - outpatient optho/derm follow-up Tobacco abuse - cessation - nicotine replacement DVT prophylaxis: SCDs Discussed with: Patient, nursing Anticipated discharge: no safe discharge available at this time Anticipated discharge place: unknown A total of 20 minutes was spent on the care of this complex patient more than 50% of the time was spent in counseling and care coordination. Objective - Vital Signs Vital signs: Vital Signs Temp 97.8 F 01/15/20 03:15 Pulse 57 L 01/15/20 03:15 Resp 18 01/15/20 03:15 BP 128/62 01/15/20 03:15 Pulse Ox 95 01/15/20 03:15 Intake & Output 01/14/20 01/15/20 01/15/20 18:59 06:59 18:59 Intake Total 340 Balance 340 Intake: Oral 340 Other: Voiding Method Toilet Toilet # Voids 1 2 2 - Labs CBC & Chem 7: 01/13/20 06:48 01/13/20 06:48
[2020-01-15] MEDS: NICOTINE 21MG/24HR PATCH TRANSDERM SCH (12:44)
[2020-01-15 14:41] VITALS: BMI 17.6
[2020-01-16] MEDS: ALPRAZolam 0.5 MG TAB PO PRN ×2 (00:41→23:27)
[2020-01-16] MEDS: BACITRACIN ZINC 500 UNIT/GM OINT 28.4 GM TUBE TOPICAL PRN ×2 (01:19→18:49)
[2020-01-16] MEDS: NICOTINE 21MG/24HR PATCH TRANSDERM SCH (08:52)
--- NOTE | 2020-01-16 18:15 | P.PN ---
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 Arrival to the ER she underwent an extensive evaluation. Her initial vital signs were within normal limits. Laboratory analysis showed sodium 133, potassium 3.2, carbon dioxide 32 and initial troponin was negative. EKG demonstrated normal sinus rhythm at a rate of [address]-T wave changes. She was admitted for chest pain observation. She has not started on aspirin secondary to history of an ALLERGY. The remainder of her troponins were negative. Acute coronary syndrome was ruled out. She was cleared by cardiology for discharge. Patient also showed significant memory impairment during her hospital stay. Over record review it appears that she came in on 01/06 secondary to a right eye lesion at that point in time she was recommended outpatient follow-up with primary care, dermatology, and ophthalmology. On 01/11 she again presented to the ER with complaints of the right eye lesion and per ER records did not remember coming to the ER on 01/06 for the same problem. She then came back to the ER several hours later with complaints of chest pain. Patient is not compatent to make her own decision. APS involved as not able to contact POA and family unable to come in from [place] to care for patient. Patient seen and examined at bedside. No chest pain, SOB, nausea, vomiting. States that she wants to go back to [place]. General: non toxic, no distress, appears at stated age Derm: warm, dry Head: atraumatic, normocephalic, symmetric Eyes: EOMI, no lid lag, anicteric sclera, right supraorbital nodular growth without drainage Mouth: no lip lesion, mucus membranes moist Cardiovascular: S1S2 reg, no murmur, positive posterior tibial pulse bilateral, Lungs: Decreased bs bilateral, no rhonchi, no rales , no accessory muscle use Psych: Alert, awake, appropriate affect. Chest pain - ACS ruled out - allergic to Aspirin - cardio recs appreciated. - Lipid profile normal Memory impairment, not competent to make decision for herself. -Patient is currently not competent to make her own decisions. She has demonstrated lack of insight and she felt she could walk from [place] from [place], she is unable to recall where she is living or provide a phone number for her medication care manager Marshall, and she cannot remember how she got to the hospital. At this point in time she is not safe for discharge until family or guardian contacted. 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 - APS notified and unable to get ahold of GABY Olivares, working with daughter who is unable to care for patient. Applying for guardianship. Right supreorbital lesion - CT face done 01/06 demonstrated soft tissue density of right supraorbital lesion. No extension - outpatient optho/derm follow-up Tobacco abuse - cessation - nicotine replacement DVT prophylaxis: SCDs Discussed with: Patient, nursing Anticipated discharge: no safe discharge available at this time Anticipated discharge place: unknown A total of 20 minutes was spent on the care of this complex patient more than 5 0% of the time was spent in counseling and care coordination. Objective - Vital Signs Vital signs: Vital Signs Temp 97.5 F L 01/16/20 15:00 Pulse 86 01/16/20 15:00 Resp 16 01/16/20 15:00 BP 129/81 01/16/20 15:00 Pulse Ox 97 01/16/20 15:00 Intake & Output 01/15/20 01/16/20 01/16/20 18:59 06:59 18:59 Intake Total 720 Balance 720 Weight 40.823 kg Intake: Oral 720 Other: Voiding Method Toilet Toilet Toilet # Voids 2 1 3 - Labs CBC & Chem 7: 01/13/20 06:48 01/13/20 06:48
[2020-01-17] MEDS: NICOTINE 21MG/24HR PATCH TRANSDERM SCH (08:45)
--- NOTE | 2020-01-17 14:27 | P.PN ---
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 Arrival to the ER she underwent an extensive evaluation. Her initial vital signs were within normal limits. Laboratory analysis showed sodium 133, potassium 3.2, carbon dioxide 32 and initial troponin was negative. EKG demonstrated normal sinus rhythm at a rate of [address]-T wave changes. She was admitted for chest pain observation. She has not started on aspirin secondary to history of an ALLERGY. The remainder of her troponins were negative. Acute coronary syndrome was ruled out. She was cleared by cardiology for discharge. Patient also showed significant memory impairment during her hospital stay. Over record review it appears that she came in on 01/06 secondary to a right eye lesion at that point in time she was recommended outpatient follow-up with primary care, dermatology, and ophthalmology. On 01/11 she again presented to the ER with complaints of the right eye lesion and per ER records did not remember coming to the ER on 01/06 for the same problem. She then came back to the ER several hours later with complaints of chest pain. Patient is not competent to make her own decision. APS involved as not able to contact POA and family unable to come in from [place] to care for patient. Currently applying for guardianship. Patient seen and examined at bedside. No chest pain, SOB, nausea, vomiting. States that she wants to go back to [place]. General: non toxic, no distress, appears at stated age Derm: warm, dry Head: atraumatic, normocephalic, symmetric Eyes: EOMI, no lid lag, anicteric sclera, right supraorbital nodular growth without drainage Mouth: no lip lesion, mucus membranes moist Cardiovascular: S1S2 reg, no murmur, positive posterior tibial pulse bilateral, Lungs: Decreased bs bilateral, no rhonchi, no rales , no accessory muscle use Psych: Alert, awake, appropriate affect. Chest pain - ACS ruled out - allergic to Aspirin - cardio recs appreciated. - Lipid profile normal Memory impairment, not competent to make decision for herself. -Patient is currently not competent to make her own decisions. She has demonstrated lack of insight and she felt she could walk from [place] from [place], she is unable to recall where she is living or provide a phone number for her healthcare administrative assistant Marshall, and she cannot remember how she got to the hospital. At this point in time she is not safe for discharge until family or guardian contacted. 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 - APS notified and unable to get ahold of GABY Olivares, working with daughter who is unable to care for patient. Applying for guardianship. Right supraorbital lesion - CT face done 01/06 demonstrated soft tissue density of right supraorbital lesion. No extension - outpatient optho/derm follow-up Tobacco abuse - cessation - nicotine replacement DVT prophylaxis: SCDs Discussed with: Patient, nursing Anticipated discharge: no safe discharge available at this time Anticipated discharge place: 01/22 A total of 20 minutes was spent on the care of this complex patient more than 50% of the time was spent in counseling and care coordination. Objective - Vital Signs Vital signs: Vital Signs Temp 97.6 F 01/17/20 07:32 Pulse 66 01/17/20 07:32 Resp 16 01/17/20 07:32 BP 109/59 01/17/20 07:32 Pulse Ox 97 01/17/20 07:32 Intake & Output 01/16/20 01/17/20 01/17/20 18:59 06:59 18:59 Intake Total 720 780 Balance 720 780 Intake: Oral 720 780 Other: Voiding Method Toilet Toilet # Voids 3 1 - Labs CBC & Chem 7: 01/13/20 06:48 01/13/20 06:48
[2020-01-17] MEDS: ALPRAZolam 0.5 MG TAB PO PRN (23:09)
[2020-01-18] MEDS: NICOTINE 21MG/24HR PATCH TRANSDERM SCH (08:10)
--- NOTE | 2020-01-18 11:41 | P.PN ---
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 Arrival to the ER she underwent an extensive evaluation. Her initial vital signs were within normal limits. Laboratory analysis showed sodium 133, potassium 3.2, carbon dioxide 32 and initial troponin was negative. EKG demonstrated normal sinus rhythm at a rate of [address]-T wave changes. She was admitted for chest pain observation. She has not started on aspirin secondary to history of an ALLERGY. The remainder of her troponins were negative. Acute coronary syndrome was ruled out. She was cleared by cardiology for discharge. Patient also showed significant memory impairment during her hospital stay. Over record review it appears that she came in on 01/06 secondary to a right eye lesion at that point in time she was recommended outpatient follow-up with primary care, dermatology, and ophthalmology. On 01/11 she again presented to the ER with complaints of the right eye lesion and per ER records did not remember coming to the ER on 01/06 for the same problem. She then came back to the ER several hours later with complaints of chest pain. Patient is not competent to make her own decision. APS involved as not able to contact POA and family unable to come in from [place] to care for patient. Currently applying for guardianship. Patient seen and examined at bedside. Doing well. No chest pain. No nausea. Hoping to leave the hospital soon. General: non toxic, no distress, appears at stated age Derm: warm, dry Head: atraumatic, normocephalic, symmetric Eyes: EOMI, no lid lag, anicteric sclera, right supraorbital nodular growth without drainage Mouth: no lip lesion, mucus membranes moist Cardiovascular: S1S2 reg, no murmur, positive posterior tibial pulse bilateral, Lungs: Decreased bs bilateral, no rhonchi, no rales , no accessory muscle use Psych: Alert, awake, appropriate affect. Memory impairment, not competent to make decision for herself. -Patient is currently not competent to make her own decisions. She has demonstrated lack of insight and she felt she could walk from [place] from [place], she is unable to recall where she is living or provide a phone nu mber for her workforce investment act career manager Marshall, and she cannot remember how she got to the hospital. At this point in time she is not safe for discharge until family or guardian contacted. 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 - APS notified and unable to get ahold of GABY Olivares, working with daughter who is unable to care for patient. Applying for guardianship Hearing 01/21. Right supraorbital lesion - CT face done 01/06 demonstrated soft tissue density of right supraorbital lesion. No extension - outpatient optho/derm follow-up Tobacco abuse - cessation - nicotine replacement Chest pain, resolved - ACS ruled out - allergic to Aspirin - cardio recs appreciated. - Lipid profile normal DVT prophylaxis: SCDs Discussed with: Patient, nursing Anticipated discharge: no safe discharge available at this time Anticipated discharge place: 01/22 A total of 20 minutes was spent on the care of this complex patient more than 50% of the time was spent in counseling and care coordination. Objective - Vital Signs Vital signs: Vital Signs Temp 98 F 01/18/20 08:35 Pulse 61 01/18/20 08:37 Resp 16 01/18/20 08:37 BP 98/51 01/18/20 08:35 Pulse Ox 98 01/18/20 08:35 Intake & Output 01/17/20 01/18/20 01/18/20 18:59 06:59 18:59 Intake Total 240 Balance 240 Weight 40.823 kg Intake: Oral 240 Other: Voiding Method Toilet Toilet # Voids 1 1 # Bowel Movements 1 - Labs CBC & Chem 7: 01/13/20 06:48 01/13/20 06:48
[2020-01-18] MEDS: BACITRACIN ZINC 500 UNIT/GM OINT 28.4 GM TUBE TOPICAL PRN (21:27)
[2020-01-19] MEDS: ALPRAZolam 0.5 MG TAB PO PRN (02:04)
[2020-01-19] MEDS: NICOTINE 21MG/24HR PATCH TRANSDERM SCH (09:46)
--- NOTE | 2020-01-19 15:29 | P.PN ---
Subjective Progress Note Date: 01/19/20 Patient was seen and examined. No acute events overnight. Patient denies any chest pain, shortness breath or palpitations. No nausea or vomiting. No fever or chills. Objective - Vital Signs Vital signs: Vital Signs Temp 97.5 F L 01/19/20 09:00 Pulse 63 01/19/20 09:00 Resp 16 01/19/20 09:00 BP 120/76 01/19/20 09:00 Pulse Ox 98 01/19/20 09:00 Intake & Output 01/18/20 01/19/20 01/19/20 18:59 06:59 18:59 Intake Total 540 300 Balance 540 300 Intake: Oral 540 300 Other: Voiding Method Toilet Toilet # Voids 3 1 # Bowel Movements 1 - Exam General: [non toxic], [no distress], [appears at stated age] Derm: [warm], [dry] Head: [atraumatic], [normocephalic], [symmetric] Eyes: [EOMI], [no lid lag], [anicteric sclera], [right supraorbital nodular growth] Mouth: [no lip lesion], [mucus membranes moist] Cardiovascular: [S1S2 reg], [no murmur], [positive DP pulse bilateral], Lungs: [CTA bilateral], [no rhonchi, no rales] , [no accessory muscle use] Abdominal: [soft], [ nontender to palpation], [no guarding], [no appreciable organomegaly] Ext: [no gross muscle atrophy], [no edema], [no contractures] Neuro: [no focal neuro deficits] Psych: [Alert], [oriented], [appropriate affect] - Labs CBC & Chem 7: 01/13/20 06:48 01/13/20 06:48 Assessment and Plan Assessment: Memory impairment, not competent to make decision for herself. -Patient is currently not competent to make her own decisions. She has demonstrated lack of insight and she felt she could walk to [place] from [place], she is unable to recall where she is living or provide a phone number for her direct service professional [employer], and she cannot remember how she got to the hospital. At this point in time she is not safe for discharge until family or guardian contacted. 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 - APS notified and unable to get ahold of GABY Olivares, working with daughter who is unable to care for patient. Applying for guardianship Hearing 01/21. Right supraorbital lesion - CT face done 01/06 demonstrated soft tissue density of right supraorbital les ion. No extension - Outpatient optho/derm follow-up Tobacco abuse - Cessation - Nicotine replacement Chest pain, resolved - ACS ruled out - Allergic to Aspirin - Cardio recs appreciated. - Lipid profile normal DVT prophylaxis: SCDs Discussed with: Patient, nursing Anticipated discharge: no safe discharge available at this time Anticipated discharge place: 01/22 A total of 20 minutes was spent on the care of this complex patient more than 50% of the time was spent in counseling and care coordination.
[2020-01-20] MEDS: BACITRACIN ZINC 500 UNIT/GM OINT 28.4 GM TUBE TOPICAL PRN ×2 (01:43→22:51)
[2020-01-20] MEDS: NICOTINE 21MG/24HR PATCH TRANSDERM SCH (09:28)
--- NOTE | 2020-01-20 18:20 | P.PN ---
Subjective Progress Note Date: 01/20/20 Patient was seen and examined. No acute events overnight. Patient denies any chest pain, shortness breath or palpitations. No nausea or vomiting. No fever or chills. She complains of something in her eye on the left side. Objective - Vital Signs Vital signs: Vital Signs Temp 98.4 F 01/20/20 15:00 Pulse 86 01/20/20 15:00 Resp 18 01/20/20 15:00 BP 125/67 01/20/20 15:00 Pulse Ox 98 01/20/20 09:00 Intake & Output 01/19/20 01/20/20 01/20/20 18:59 06:59 18:59 Intake Total 300 Balance 300 Intake: Oral 300 Other: Voiding Method Toilet Toilet # Voids 2 2 2 # Bowel Movements 1 1 - Exam General: [non toxic], [no distress], [appears at stated age] Derm: [warm], [dry] Head: [atraumatic], [normocephalic], [symmetric] Eyes: [EOMI], [no lid lag], [injected sclera on the left eye], [right supraorbital nodular growth] Mouth: [no lip lesion], [mucus membranes moist] Cardiovascular: [S1S2 reg], [no murmur], [positive DP pulse bilateral], Lungs: [CTA bilateral], [no rhonchi, no rales] , [no accessory muscle use] Abdominal: [soft], [ nontender to palpation], [no guarding], [no appreciable organomegaly] Ext: [no gross muscle atrophy], [no edema], [no contractures] Neuro: [no focal neuro deficits] Psych: [Alert], [oriented], [appropriate affect] - Labs CBC & Chem 7: 01/13/20 06:48 01/13/20 06:48 Assessment and Plan Assessment: Memory impairment, not competent to make decision for herself. -Patient is currently not competent to make her own decisions. She has demonstrated lack of insight and she felt she could walk to [place] from [place], she is unable to recall where she is living or provide a phone number for her facility maintenance technician Marshall, and she cannot remember how she got to the hospital. At this point in time she is not safe for discharge until family or guardian contacted. 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 - APS notified and unable to get ahold of GABY Olivares, working with daughter who is unable to care for patient. Applying for guardianship Hearing 01/21. Right supraorbital lesion - CT face done 01/06 demonstrated soft tissue density of right supraorbital lesion. No extension - Outpatient optho/derm follow-up Tobacco abuse - Cessation - Nicotine replacement Chest pain, resolved - ACS ruled out - Allergic to Aspirin - Cardio recs appreciated. - Lipid profile normal DVT prophylaxis: SCDs Discussed with: Patient, nursing Anticipated discharge: no safe discharge available at this time Anticipated discharge place: 01/22 A total of 20 minutes was spent on the care of this complex patient more than 50% of the time was spent in counseling and care coordination.
[2020-01-20] MEDS: ALPRAZolam 0.5 MG TAB PO PRN (22:51)
[2020-01-21] MEDS: NICOTINE 21MG/24HR PATCH TRANSDERM SCH (10:42)
[2020-01-21] MEDS: ALPRAZolam 0.5 MG TAB PO PRN (23:49)
--- NOTE | 2020-01-22 07:56 | P.PN ---
Subjective Progress Note Date: 01/21/20 Patient was seen and examined. No acute events overnight. Patient denies any chest pain, shortness breath or palpitations. No nausea or vomiting. No fever or chills. Objective - Vital Signs Vital signs: Vital Signs Temp 97.5 F L 01/21/20 15:00 Pulse 78 01/21/20 15:00 Resp 16 01/21/20 15:00 BP 123/74 01/21/20 15:00 Pulse Ox 98 01/21/20 15:00 Intake & Output 01/20/20 01/21/20 01/21/20 18:59 06:59 18:59 Intake Total 477 Balance 477 Intake: Oral 477 Other: Voiding Method Toilet Toilet # Voids 2 1 1 # Bowel Movements 1 1 - Exam General: [non toxic], [no distress], [appears at stated age] Derm: [warm], [dry] Head: [atraumatic], [normocephalic], [symmetric] Eyes: [EOMI], [no lid lag], [injected sclera on the left eye], [right supraorbital nodular growth] Mouth: [no lip lesion], [mucus membranes moist] Cardiovascular: [S1S2 reg], [no murmur], [positive DP pulse bilateral], Lungs: [CTA bilateral], [no rhonchi, no rales] , [no accessory muscle use] Abdominal: [soft], [ nontender to palpation], [no guarding], [no appreciable organomegaly] Ext: [no gross muscle atrophy], [no edema], [no contractures] Neuro: [no focal neuro deficits] Psych: [Alert], [oriented], [appropriate affect] - Labs CBC & Chem 7: 01/13/20 06:48 01/13/20 06:48 Assessment and Plan Assessment: Memory impairment, not competent to make decision for herself. -Patient is currently not competent to make her own decisions. She has dem onstrated lack of insight and she felt she could walk to [place] from [place], she is unable to recall where she is living or provide a phone number for her production intern Marshall, and she cannot remember how she got to the hospital. At this point in time she is not safe for discharge until family or guardian contacted. 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 - APS notified and unable to get ahold of GABY Olivares, working with daughter who is unable to care for patient. Applying for guardianship Hearing 01/21. Right supraorbital lesion - CT face done 01/06 demonstrated soft tissue density of right supraorbital lesion. No extension - Outpatient optho/derm follow-up Tobacco abuse - Cessation - Nicotine replacement Chest pain, resolved - ACS ruled out - Allergic to Aspirin - Cardio recs appreciated. - Lipid profile normal DVT prophylaxis: SCDs Discussed with: Patient, nursing Anticipated discharge: no safe discharge available at this time Anticipated discharge place: 01/22 A total of 20 minutes was spent on the care of this complex patient more than 50% of the time was spent in counseling and care coordination.
[2020-01-22] MEDS: NICOTINE 21MG/24HR PATCH TRANSDERM SCH (08:11)
[2020-01-22] MEDS: BACITRACIN ZINC 500 UNIT/GM OINT 28.4 GM TUBE TOPICAL PRN (20:42)
[2020-01-23] MEDS: NICOTINE 21MG/24HR PATCH TRANSDERM SCH (07:29)
[2020-01-23 11:03] LABS: Basophils # (A) 0.1 k/uL (0-0.2); Basophils % (A) 1 %; Eosinophils # (A) 0.1 k/uL (0-0.7); Eosinophils % (A) 1 %; HCT 40.8 % (34.0-46.0); HGB 13.1 gm/dL (11.4-16.0); Lymphocytes # (A) 1.7 k/uL (1.0-4.8); Lymphocytes % (A) 18 %; MCH 30.1 pg (25.0-35.0); Mean Platelet Volume 8.5; Monocytes # (A) 0.8 k/uL (0-1.0); Monocytes % (A) 8 %; Neutrophils # (A) 6.8 k/uL (1.3-7.7); Neutrophils % (A) 70 %; Platelet Count 278 k/uL (150-450); RBC 4.34 m/uL (3.80-5.40); RDW 13.4 % (11.5-15.5); WBC 9.7 k/uL (3.8-10.6)
--- NOTE | 2020-01-23 17:34 | P.PN ---
Subjective Progress Note Date: 01/23/20 Patient is doing well today. No acute events overnight. Objective - Vital Signs Vital signs: Vital Signs Temp 98 F 01/23/20 11:48 Pulse 77 01/23/20 11:48 Resp 18 01/23/20 11:48 BP 118/70 01/23/20 11:48 Pulse Ox 99 01/23/20 11:48 Intake & Output 01/22/20 01/23/20 01/23/20 18:59 06:59 18:59 Intake Total 400 400 Balance 400 400 Weight 40.823 kg Intake: Oral 400 400 Other: Voiding Method Toilet Toilet Toilet # Voids 2 1 2 - Exam General: The patient is awake and alert, in no distress Eye: there is normal conjunctiva bilaterally. Neck: The neck is supple, there is no JVD. Cardiovascular: Normal S1-S2, no S3-S4, no murmurs. Respiratory: Lungs clear to auscultation bilaterally Gastrointestinal: Abdomen is soft, nontender Musculoskeletal: There is no pedal edema. Neurological:. Speech is normal. Skin: Skin is warm and dry - Labs CBC & Chem 7: 01/23/20 10:31 01/13/20 06:48 Assessment and Plan Assessment: Memory impairment, not competent to make decision for herself. -Patient is currently not competent to make her own decisions. At this point in time she is not safe for discharge until family or guardian contacted. 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 - APS notified and unable to get ahold of GABY Olivares, working with daughter who is unable to care for patient. Applying for guardianship Hearing 01/21. Right supraorbital lesion - CT face done 01/06 demonstrated soft tissue density of right supraorbital lesion. No extension - Outpatient optho/derm follow-up Tobacco abuse - Cessation - Nicotine replacement Chest pain, resolved - ACS ruled out - Allergic to Aspirin - Cardio recs appreciated. - Lipid profile normal DVT prophylaxis: SCDs Discussed with: Patient, nursing Anticipated discharge: no safe discharge available at this time Anticipated discharge place: 01/23 A total of 20 minutes was spent on the care of this complex patient more than 50% of the time was spent in counseling and care coordination.
[2020-01-23 20:44] LABS: Anion Gap 7.5 mmol/L (4.00-12.00); BUN/Creat Ratio 33.33 Ratio (12.00-20.00); Calcium 10.2 mg/dL (8.7-10.3); Carbon Dioxide 32.5 mmol/L (21.6-31.8); Non-African American GFR(CKD) 98.4 (60.0-200.0); Potassium 4.7 mmol/L (3.5-5.5)
[2020-01-23] MEDS: BACITRACIN ZINC 500 UNIT/GM OINT 28.4 GM TUBE TOPICAL PRN (21:05)
[2020-01-24] MEDS: ALPRAZolam 0.5 MG TAB PO PRN ×2 (08:12→23:32)
[2020-01-24] MEDS: NICOTINE 21MG/24HR PATCH TRANSDERM SCH (08:12)
--- NOTE | 2020-01-24 17:03 | P.PN ---
Subjective Progress Note Date: 01/24/20 Patient is doing well today. No acute events overnight. Objective - Vital Signs Vital signs: Vital Signs Temp 97.9 F 01/24/20 11:09 Pulse 64 01/24/20 15:45 Resp 16 01/24/20 15:45 BP 114/69 01/24/20 11:09 Pulse Ox 98 01/24/20 11:09 Intake & Output 01/23/20 01/24/20 01/24/20 18:59 06:59 18:59 Intake Total 200 Output Total 250 Balance -50 Weight 40.823 kg Intake: Oral 200 Output: Urine 250 Other: Voiding Method Toilet Toilet Toilet # Voids 2 1 1 - Exam General: The patient is awake and alert, in no distress Eye: there is normal conjunctiva bilaterally. Neck: The neck is supple, there is no JVD. Cardiovascular: Normal S1-S2, no S3-S4, no murmurs. Respiratory: Lungs clear to auscultation bilaterally Gastrointestinal: Abdomen is soft, nontender Musculoskeletal: There is no pedal edema. Neurological:. Speech is normal. Skin: Skin is warm and dry - Labs CBC & Chem 7: 01/23/20 10:31 01/23/20 10:31 Labs: Abnormal Lab Results - Last 24 Hours (Table) 01/23/20 Range/Units 10:31 Carbon Dioxide 32.5 H (21.6-31.8) mmol/L BUN/Creatinine Ratio 33.33 H (12.00-20.00) Ratio Assessment and Plan Assessment: Memory impairment, not competent to make decision for herself. -Patient is currently not competent to make her own decisions. At this point in time she is not safe for discharge until family or guardian contacted. 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 - APS notified and unable to get ahold of GABY Olivares, working with daughter who is unable to care for patient. Applying for guardianship Hearing 01/21. Right supraorbital lesion - CT face done 01/06 demonstrated soft tissue density of right supraorbital lesion. No extension - Outpatient optho/derm follow-up Tobacco abuse - Cessation - Nicotine replacement Chest pain, resolved - ACS ruled out - Allergic to Aspirin - Cardio recs appreciated. - Lipid profile normal DVT prophylaxis: SCDs Anticipated discharge: no safe discharge available at this time Anticipated discharge place: Awaiting echocardiogram
[2020-01-24 23:27] LABS: Glucose,Whole Blood 106 mg/dL (75-99)
[2020-01-25] MEDS: NICOTINE 21MG/24HR PATCH TRANSDERM SCH (09:02)
--- NOTE | 2020-01-25 13:04 | XR ---
EXAMINATION TYPE: XR chest 1V DATE OF EXAM: 01/25/2020 COMPARISON: 01/13/2020 HISTORY: 59 year-old female rule out TB, cough TECHNIQUE: Single frontal view of the chest is obtained. FINDINGS: Heart normal size. Mild atherosclerotic arch calcifications. Hyperinflation with flattening of the he midiaphragms. No consolidation or pleural effusion. IMPRESSION: COPD. No acute process seen.
--- NOTE | 2020-01-25 13:20 | CDI ---
Documentation Clarification Form Date: 01/25/2020 01:04:14 PM From: Jennifer Huff Admit Date: 01/16/2020 08:43:00 AM Patient Name: Lou Reyes Visit Number: [id number] Discharge Date: ATTENTION: The Clinical Documentation Specialists (CDI) and [facility] Coding Staff appreciate your assistance in clarifying documentation. Please respond to the clarification below the line at the bottom and electronically sign. The CDI & [facility] Coding staff will review the response and follow-up if needed. Please note: Queries are made part of the Legal Health Record. If you have any questions, please contact the author of this message via ITS. Dr. Odalys Catalan Malnutrition has been documented in the H&P 01/12. History/Risk Factors: 59-year-old female presents to the ED returning to the with substernal chest pain after presenting earlier in the day for eyelid lesion. Medical History Dementia, [place] and current everyday smoker Clinical Indicators: 01/12 Labs: Na 133, K 3.2, Chl 95, Glucose 100, Current BMI:17.6 Insufficient energy intake: Initial assessment eating 50-75% of meals Per H&P 01/12 No gross muscle atrophy, muscle strength 5 out of 5 in all 4 extremities grossly, no contractures. Treatment: Dietary Consult: Clinical Diagnosis: Underweight related to decreased intake and weight. Supplements: Ensure TID with meals, monitor po intake and supplement. In your professional opinion, can you please clarify if these findings signify one of the following conditions? Mild Protein-Calorie Malnutrition Moderate Protein-Calorie Malnutrition Severe Protein-Calorie Malnutrition Other condition, please specify Unable to determine (Last Revision: October 2018) MTDD
--- NOTE | 2020-01-25 14:15 | P.PN ---
Subjective Progress Note Date: 01/25/20 Patient is doing well today. No acute events overnight. Objective - Vital Signs Vital signs: Vital Signs Temp 98 F 01/25/20 12:30 Pulse 77 01/25/20 12:30 Resp 16 01/25/20 12:30 BP 134/67 01/25/20 12:30 Pulse Ox 99 01/25/20 12:30 Intake & Output 01/24/20 01/25/20 01/25/20 18:59 06:59 18:59 Intake Total 200 850 Output Total 250 Balance -50 850 Intake: Oral 200 850 Output: Urine 250 Other: Voiding Method Toilet Toilet Toilet # Voids 1 0 # Bowel Movements 0 - Exam General: The patient is awake and alert, in no distress Eye: there is normal conjunctiva bilaterally. Neck: The neck is supple, there is no JVD. Cardiovascular: Normal S1-S2, no S3-S4, no murmurs. Respiratory: Lungs clear to auscultation bilaterally Gastrointestinal: Abdomen is soft, nontender Musculoskeletal: There is no pedal edema. Neurological:. Speech is normal. Skin: Skin is warm and dry - Labs CBC & Chem 7: 01/23/20 10:31 01/23/20 10:31 Labs: Abnormal Lab Results - Last 24 Hours (Table) 01/24/20 Range/Units 23:25 POC Glucose (mg/dL) 106 H (75-99) mg/dL Assessment and Plan Assessment: Memory impairment, not competent to make decision for herself. -Patient is currently not competent to make her own decisions. At this point in time she is not safe for discharge until family or guardian contacted. 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 - APS notified and unable to get ahold of GABY Olivares, working with daughter who is unable to care for patient. Applying for guardianship Hearing 01/21. Right supraorbital lesion - CT face done 01/06 demonstrated soft tissue density of right supraorbital lesion. No extension - Outpatient optho/derm follow-up Tobacco abuse - Cessation - Nicotine replacement Chest pain, resolved - ACS ruled out - Allergic to Aspirin - Cardio recs appreciated. - Lipid profile normal Mild protein caloric malnutrition - Add ensure 3 times a day DVT prophylaxis: SCDs Anticipated discharge: no safe discharge available at this time Anticipated discharge place: Awaiting echocardiogram
[2020-01-26] MEDS: ALPRAZolam 0.5 MG TAB PO PRN (00:02)
[2020-01-26] MEDS: NICOTINE 21MG/24HR PATCH TRANSDERM SCH (08:53)
--- NOTE | 2020-01-26 13:19 | P.PN ---
Subjective Progress Note Date: 01/26/20 Patient is doing well today. No acute events overnight. Objective - Vital Signs Vital signs: Vital Signs Temp 97.8 F 01/26/20 11:59 Pulse 72 01/26/20 11:59 Resp 16 01/26/20 11:59 BP 112/57 01/26/20 11:59 Pulse Ox 97 01/26/20 11:59 Intake & Output 01/25/20 01/26/20 01/26/20 18:59 06:59 18:59 Intake Total 990 Balance 990 Intake: Oral 990 Other: Voiding Method Toilet Toilet # Voids 2 2 1 # Bowel Movements 0 - Exam General: The patient is awake and alert, in no distress Eye: there is normal conjunctiva bilaterally. Neck: The neck is supple, there is no JVD. Cardiovascular: Normal S1-S2, no S3-S4, no murmurs. Respiratory: Lungs clear to auscultation bilaterally Gastrointestinal: Abdomen is soft, nontender Musculoskeletal: There is no pedal edema. Neurological:. Speech is normal. Skin: Skin is warm and dry - Labs CBC & Chem 7: 01/23/20 10:31 01/23/20 10:31 Assessment and Plan Assessment: Memory impairment, not competent to make decision for herself. -Patient is currently not competent to make her own decisions. At this point in time she is not safe for discharge until family or guardian contacted. 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 - APS notified and unable to get ahold of GABY Olivares, working with daughter who is unable to care for patient. Applying for guardianship Hearing 01/21. Right supraorbital lesion - CT face done 01/06 demonstrated soft tissue density of right supraorbital lesion. No extension - Outpatient optho/derm follow-up Tobacco abuse - Cessation - Nicotine replacement Chest pain, resolved - ACS ruled out - Allergic to Aspirin - Cardio recs appreciated. - Lipid profile normal Mild protein caloric malnutrition - Add ensure 3 times a day DVT prophylaxis: SCDs Anticipated discharge: no safe discharge available at this time awaiting legal guardian. Social work following closely. Anticipated discharge place: [facility] home
[2020-01-27] MEDS: NICOTINE 21MG/24HR PATCH TRANSDERM SCH (07:49)
[2020-01-27] MEDS: ALPRAZolam 0.5 MG TAB PO PRN ×2 (07:49→22:16)
--- NOTE | 2020-01-27 13:30 | P.PN ---
Subjective Progress Note Date: 01/27/20 Patient is doing well today. No acute events overnight. Objective - Vital Signs Vital signs: Vital Signs Temp 97.7 F 01/27/20 04:36 Pulse 67 01/27/20 08:00 Resp 16 01/27/20 08:00 BP 120/76 01/27/20 04:36 Pulse Ox 100 01/27/20 04:36 Intake & Output 01/26/20 01/27/20 01/27/20 18:59 06:59 18:59 Intake Total 240 Output Total 250 Balance 240 -250 Intake: Oral 240 Output: Urine 250 Other: Voiding Method Toilet Toilet # Voids 1 2 2 # Bowel Movements 0 - Exam General: The patient is awake and alert, in no distress Eye: there is normal conjunctiva bilaterally. Neck: The neck is supple, there is no JVD. Cardiovascular: Normal S1-S2, no S3-S4, no murmurs. Respiratory: Lungs clear to auscultation bilaterally Gastrointestinal: Abdomen is soft, nontender Musculoskeletal: There is no pedal edema. Neurological:. Speech is normal. Skin: Skin is warm and dry - Labs CBC & Chem 7: 01/23/20 10:31 01/23/20 10:31 Assessment and Plan Assessment: Memory impairment, not competent to make decision for herself. -Patient is currently not competent to make her own decisions. At this point in time she is not safe for discharge until family or guardian contacted. 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 - APS notified and unable to get ahold of GABY Olivares, working with daughter who is unable to care for patient. Applying for guardianship Hearing 01/21. Right supraorbital lesion - CT face done 01/06 demonstrated soft tissue density of right supraorbital lesion. No extension - Outpatient optho/derm follow-up Tobacco abuse - Cessation - Nicotine replacement Chest pain, resolved - ACS ruled out - Allergic to Aspirin - Cardio recs appreciated. - Lipid profile normal Mild protein caloric malnutrition - Add ensure 3 times a day DVT prophylaxis: SCDs Anticipated discharge: no safe discharge available at this time awaiting legal guardian. Social work following closely. Anticipated discharge place: [facility] home
[2020-01-28] MEDS: NICOTINE 21MG/24HR PATCH TRANSDERM SCH (08:20)
[2020-01-28] MEDS: ALPRAZolam 0.5 MG TAB PO PRN (08:21)
--- NOTE | 2020-01-28 17:13 | P.PN ---
Subjective Patient is doing well today. No acute events overnight. Objective - Vital Signs Vital signs: Vital Signs Temp 97.5 F L 01/28/20 13:00 Pulse 90 01/28/20 16:00 Resp 16 01/28/20 16:00 BP 112/65 01/28/20 13:00 Pulse Ox 96 01/28/20 13:00 Intake & Output 01/27/20 01/28/20 01/28/20 18:59 06:59 18:59 Intake Total 200 1790 200 Output Total 500 Balance -300 1790 200 Intake: Oral 200 1790 200 Output: Urine 500 Other: Voiding Method Toilet Toilet Toilet # Voids 2 2 # Bowel Movements 0 - Exam General: The patient is awake and alert, in no distress Eye: there is normal conjunctiva bilaterally. Neck: The neck is supple, there is no JVD. Cardiovascular: Normal S1-S2, no S3-S4, no murmurs. Respiratory: Lungs clear to auscultation bilaterally Gastrointestinal: Abdomen is soft, nontender Musculoskeletal: There is no pedal edema. Neurological:. Speech is normal. Skin: Skin is warm and dry - Labs CBC & Chem 7: 01/23/20 10:31 01/23/20 10:31 Assessment and Plan Assessment: Memory impairment, not competent to make decision for herself. -Patient is currently not competent to make her own decisions. At this point in time she is not safe for discharge until family or guardian contacted. 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 - APS notified and unable to get ahold of GABY Olivares, working with daughter who is unable to care for patient. Applying for guardianship Hearing 01/21. Right supraorbital lesion - CT face done 01/06 demonstrated soft tissue density of right supraorbital lesion. No extension - Outpatient optho/derm follow-up Tobacco abuse - Cessation - Nicotine replacement Chest pain, resolved - ACS ruled out - Allergic to Aspirin - Cardio recs appreciated. - Lipid profile normal Mild protein caloric malnutrition - Add ensure 3 times a day DVT prophylaxis: SCDs Anticipated discharge: no safe discharge available at this time awaiting legal guardian. Social work following closely. Anticipated discharge place: [facility] home
[2020-01-29] MEDS: ALPRAZolam 0.5 MG TAB PO PRN ×2 (00:52→20:53)
[2020-01-29] MEDS: NICOTINE 21MG/24HR PATCH TRANSDERM SCH (10:32)
[2020-01-29] MEDS: BACITRACIN ZINC 500 UNIT/GM OINT 28.4 GM TUBE TOPICAL PRN (10:33)
--- NOTE | 2020-01-29 12:50 | P.DS ---
Providers Date of admission: 01/16/20 08:43 Expected date of discharge: 01/29/20 Attending physician: Tien Rodriguez MD Consults: 01/13/20 01:53 Consult Physician Urgent Consulting Provider: [facility] Consult Reason/Comments: chest pain, hx of NSTEMI, no established care in [place] Do you want consulting provider notified?: Yes, Notify in am 01/14/20 12:16 Consult Physician Routine Consulting Provider: Keon Renae Consult Reason/Comments: suicidal ideation Do you want consulting provider notified?: Yes Primary care physician: Stated None Hospital Course: Discharge Diagnosis: Memory impairment, not competent to make decision for herself. 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 Arrival to the ER she underwent an extensive evaluation. Her initial vital signs were within normal limits. Laboratory analysis showed sodium 133, potassium 3.2, carbon dioxide 32 and initial troponin was negative. EKG demonstrated normal sinus rhythm at a rate of [address]-T wave changes. She was admitted for chest pain observation. She has not started on aspirin secondary to history of an ALLERGY. The remainder of her troponins were negative. Acute coronary syndrome was ruled out. She was cleared by cardiology for discharge. Patient also showed significant memory impairment during her hospital stay. Ove r record review it appears that she came in on 01/06 secondary to a right eye lesion at that point in time she was recommended outpatient follow-up with primary care, dermatology, and ophthalmology. On 01/11 she again presented to the ER with complaints of the right eye lesion and per ER records did not remember coming to the ER on 01/06 for the same problem. She then came back to the ER several hours later with complaints of chest pain. Patient is not competent to make her own decision. APS involved as not able to contact POA and family unable to come in from [place] to care for patient. Now has court appointed guardian. Will de discharged to assisted living. Patient seen and examined at bedside. No chest pain, shortness of breath, nausea, or vomiting. Excited to be discharged. Vital signs reviewed and stable. General: non toxic, no distress, appears older than stated age, thin Derm: warm, dry Head: atraumatic, normocephalic, symmetric Eyes: EOMI, no lid lag, anicteric sclera, right supraorbital nodular growth without drainage Mouth: no lip lesion, mucus membranes moist Cardiovascular: S1S2 reg, no murmur, positive posterior tibial pulse bilateral, Lungs: CTA bilateral, no rhonchi, no rales , no accessory muscle use Abdominal: soft, nontender to palpation, no guarding, no appreciable organomegaly Ext: no gross muscle atrophy, no edema, no contractures Neuro: CN II-XI grossly intact, no focal neuro deficits Psych: Alert, oriented, appropriate affect A total of 25 minutes of time were spent preparing this complex discharge summary . Patient Condition at Discharge: Stable Plan - Discharge Summary Discharge Rx Participant: Yes New Discharge Prescriptions: New RX: ALPRAZolam [Xanax] 0.5 mg PO BID PRN #10 tab PRN Reason: Anxiety Discontinued diphenhydrAMINE [Benadryl] 25 mg PO HS PRN PRN Reason: insomnia Discharge Medication List RX: ALPRAZolam [Xanax] 0.5 mg PO BID PRN #10 tab 01/29/20 [Rx] Follow up Appointment(s)/Referral(s): None,Stated [Primary Care Provider] - 1-2 days King Lynne MD [STAFF PHYSICIAN] - 2 Weeks Patient Instructions/Handouts: How to Stop Smoking (DC) Activity/Diet/Wound Care/Special Instructions: Activity: as tolerated Diet: regular ] Discharge Disposition: HOME SELF-CARE
[2020-01-30] MEDS: NICOTINE 21MG/24HR PATCH TRANSDERM SCH (07:14)
[2020-01-30 07:57] VITALS: BP 111/65; PULSE 66; RESP 8; TEMP 97.8
--- NOTE | 2020-01-30 15:51 | P.DS ---
Providers Date of admission: 01/16/20 08:43 Expected date of discharge: 01/30/20 Attending physician: Tien Rodriguez MD Consults: 01/13/20 01:53 Consult Physician Urgent Consulting Provider: [facility] Consult Reason/Comments: chest pain, hx of NSTEMI, no established care in [place] Do you want consulting provider notified?: Yes, Notify in am 01/14/20 12:16 Consult Physician Routine Consulting Provider: Keon Renae Consult Reason/Comments: suicidal ideation Do you want consulting provider notified?: Yes Primary care physician: Stated None Hospital Course: Discharge Diagnosis: Memory impairment, not competent to make decision for herself. Now has a court appointed guardian. [facility]. 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 Arrival to the ER she underwent an extensive evaluation. Her initial vital signs were within normal limits. Laboratory analysis showed sodium 133, potassium 3.2, carbon dioxide 32 and initial troponin was negative. EKG demonstrated normal sinus rhythm at a rate of [address]-T wave changes. She was admitted for chest pain observation. She has not started on aspirin secondary to history of an ALLERGY. The remainder of her troponins were negative. Acute coronary syndrome was ruled out. She was cleared by cardiology for discharge. Patient also showed significant memory impairment during her hospital stay. Over record review it appears that she came in on 01/06 secondary to a right eye lesion at that point in time she was recommended outpatient follow-up with primary care, dermatology, and ophthalmology. On 01/11 she again presented to the ER with complaints of the right eye lesion and per ER records did not remember coming to the ER on 01/06 for the same problem. She then came back to the ER several hours later with complaints of chest pain. Patient is not competent to make her own decision. APS involved as not able to contact POA and family unable to come in from [place] to care for patient. Now has court appointed guardian. Will de discharged to assisted living. She will need a biopsy from dermatology for the suborbital lesion. The open area of this lesion has closed. Patient seen and examined at bedside. No chest pain, shortness of breath, nausea, or vomiting. Excited to be discharged. Vital signs reviewed and stable. General: non toxic, no distress, appears older than stated age, thin Derm: warm, dry Head: atraumatic, normocephalic, symmetric Eyes: EOMI, + right led unable to fully open due to lesion, anicteric sclera, right supraorbital nodular growth without drainage Mouth: no lip lesion, mucus membranes moist Cardiovascular: S1S2 reg, no murmur, positive posterior tibial pulse bilateral, Lungs: CTA bilateral, no rhonchi, no rales , no accessory muscle use Abdominal: soft, nontender to palpation, no guarding, no appreciable organomegaly Ext: no gross muscle atrophy, no edema, no contractures Neuro: CN II-XI grossly intact, no focal neuro deficits Psych: Alert, oriented, appropriate affect A total of 25 minutes of time were spent preparing this complex discharge summary . Patient Condition at Discharge: Stable Patient Condition at Discharge: Stable Plan - Discharge Summary Discharge Rx Participant: Yes New Discharge Prescriptions: New ALPRAZolam [Xanax] 0.5 mg PO BID PRN #10 tab PRN Reason: Anxiety Discontinued diphenhydrAMINE [Benadryl] 25 mg PO HS PRN PRN Reason: insomnia Discharge Medication List ALPRAZolam [Xanax] 0.5 mg PO BID PRN #10 tab 01/29/20 [Rx] Follow up Appointment(s)/Referral(s): King Lynne MD [STAFF PHYSICIAN] - 2 Weeks (Please call office to set NEW PT appointment) None,Stated [Primary Care Provider] - 1-2 days Patient Instructions/Handouts: How to Stop Smoking (DC) Activity/Diet/Wound Care/Special Instructions: Activity: as tolerated Diet: regular ] Discharge Disposition: HOME SELF-CARE
== END 2020-01-30 11:22 | disposition home or self-care (01) | DRG 71 ==
LOC: EC 23:27 → 3NCARDOBS 01-13 01:53 → INTOOBSV 01-15 08:43 → OBSVTOIN 01-15 08:43 → 6NMEDSUR 01-22 13:07
PROVIDERS: ADMIT Internal Medicine; ATTEND Internal Medicine
DX: G93.89 Other specified disorders of brain (principal); E44.1 Mild protein-calorie malnutrition; Z68.1 Body mass index [BMI] 19.9 or less, adult; E87.1 Hypo-osmolality and hyponatremia; R45.851 Suicidal ideations; F03.90 Unspecified dementia, unspecified severity, without behavioral disturbance, psychotic disturbance, mood disturbance, and anxiety; E87.6 Hypokalemia; E87.8 Other disorders of electrolyte and fluid balance, not elsewhere classified; F17.210 Nicotine dependence, cigarettes, uncomplicated; I25.10 Atherosclerotic heart disease of native coronary artery without angina pectoris; I25.2 Old myocardial infarction; J44.9 Chronic obstructive pulmonary disease, unspecified; H02.9 Unspecified disorder of eyelid; L98.9 Disorder of the skin and subcutaneous tissue, unspecified; S01.119A Laceration without foreign body of unspecified eyelid and periocular area, initial encounter; Z59.0 Homelessness; R07.9 Chest pain, unspecified; Z71.6 Tobacco abuse counseling; G47.00 Insomnia, unspecified; Z74.1 Need for assistance with personal care; Z74.2 Need for assistance at home and no other household member able to render care; Z85.841 Personal history of malignant neoplasm of brain; Z88.6 Allergy status to analgesic agent; Z20.828 Contact with and (suspected) exposure to other viral communicable diseases
CPT/HCPCS: 36415; 71045; 71046; 80048; 80053; 80061; 80306; 83036; 83690; 83735; 84484; 85025; 85027; 85610; 85730; 87635; 93005; 96360; 96361; 99285

== ENCOUNTER → 2020-07-12 | Outpatient (CLI) | payer OTHER ==
--- NOTE | 2020-07-15 08:25 | MR ---
EXAMINATION TYPE: MR brain/orbits wo/w con DATE OF EXAM: 07/12/2020 COMPARISON: 01/07/2020 CT brain HISTORY: Orbital cancer, memory loss CONTRAST: Performed utilizing 4 mL intravenous Gadavist gadolinium contrast. TECHNIQUE: Multiplanar, multiecho imaging on a 3.0 Simin magnet is performed through the brain. Stud y is performed within 24 hours of arrival to the hospital. The craniovertebral junction is normal. The pituitary is normal. Diffusion-weighted imaging is performed. No abnormal hyperintensity is present to suggest an acute i ntracranial infarct or acute ischemic change. There is hyperintensity within the anterior right temporal lobe. There is enlargement of the temporal horn of the right lateral ventricle milder prominence of the right lateral ventricle in the left lat eral ventricle. Hyperintensities within the white matter of the temporal lobe there is prominence of sulci. Findings can be related to some encephalomalacia. Consider posttraumatic encephalomalacia. There are multiple scattered punctate subcortical white matter changes present bilaterally greater in the frontal lobes. Findings are nonspecific and can be related to microvascular ischemic change. There appears to be some increased signal within the medial aspects of the bilateral temporal lobes. Correlate for mesial temporal sclerosis. Remaining Ventricles and sulci are diffusely prominent for the patient age. Following contrast administration suspicious enhancement within the intracranial parenchyma is not ev ident. Orbits: Superficial soft tissue density is over the right orbit. This appears to transverse the subcu taneous tissue extending medially towards the nasal bridge bilaterally as far see lachrymal gland lev el. This may extend as deep as the orbit. The orbit however appears intact. The lenses appear normal. Intraconal and extraconal fat is normal. Extraocular muscles are normal. Post septal invasion is not clearly identified. The right lacrimal gland appears slightly more prominent than the left lacrimal gland. Direct invasion from the superficial orbital mass into the lacrimal gland is not clearly ident ified however. Optic nerves appear normal and symmetrical. IMPRESSIONS: 1. Mass over the right orbit appears to be largely superficial with invasion into the tissues. Post s eptal region or orbital invasion is not identified. Lacrimal glands invasion may be difficult to excl ude with a more prominent right lacrimal gland then on the left. 2. Encephalomalacia or atrophy of the right temporal lobe. 3. More diffuse cerebral atrophy is present.
== END | disposition home or self-care (01) ==
LOC: RADMRIMAIN 07:49 → EEVIPCON 07:49
PROVIDERS: ATTEND Ophthalmology
DX: C69.61 Malignant neoplasm of right orbit (principal); G93.89 Other specified disorders of brain; G31.9 Degenerative disease of nervous system, unspecified
CPT/HCPCS: 70543; 70553; A9585

== ENCOUNTER → 2020-07-19 | Outpatient (CLI) | payer OTHER ==
[2020-07-19 19:27] LABS: HGB 13.3 g/dL (12.0-15.0); MCH 28.9 pg (27.0-32.0); MCHC 31.7 g/dL (32.0-37.0); MCV 91.1 fL (80.0-97.0); Mean Platelet Volume 12.3 fL (9.5-12.2); Platelet Count 302 X 10*3/uL (140-440); RBC 4.61 X 10*6/uL (4.10-5.20); RDW 15.1 % (11.5-14.5); WBC 6.13 X 10*3/uL (4.50-10.00)
[2020-07-19 21:49] LABS: African American GFR (CKD) 107.6 (60.0-200.0); Albumin 4.9 g/dL (3.80-4.90); Albumin/Globulin Ratio 2.45 (1.60-3.17); Anion Gap 8.7 mmol/L (4.00-12.00); BUN/Creat Ratio 12.86 Ratio (12.00-20.00); Calcium 9.9 mg/dL (8.7-10.3); Carbon Dioxide 28.3 mmol/L (21.6-31.8); Non-African American GFR(CKD) 92.9 (60.0-200.0); Potassium 4.3 mmol/L (3.5-5.5); Total Bilirubin 0.4 mg/dL (0.3-1.2); Total Protein 6.9 g/dL (6.2-8.2)
== END | disposition home or self-care (01) ==
LOC: LABWHC1 11:47
PROVIDERS: ATTEND Ophthalmology
DX: C44.319 Basal cell carcinoma of skin of other parts of face (principal); C44.1121 Basal cell carcinoma of skin of right upper eyelid, including canthus; D48.7 Neoplasm of uncertain behavior of other specified sites
CPT/HCPCS: 36415; 80053; 85027